=== PATIENT | female | born 1950 | race Caucasian/White ===

== ENCOUNTER 2017-03-19 18:36 | Emergency (ER) | payer MEDICARE, MEDICAID ==
[~2017-03-19] VITALS: Ht 167.6 cm; Wt 72.7 kg
[~2017-03-19 18:36] MED LIST: DIVA500T4 PO; DIVA500T9 PO; DOCU-20 PO; DOCU100C41 PO; ENOX80SY7 SUBCUT; FLUR15CA PO; FOLI1TAB16 PO; FURO-150 PO; IPRA3AMP9 NEB; LEVO50TA PO; LEVO88TA2 PO; LORA-512 PO; LORA10TA7 PO; LOVA20TA2 PO; LOVA40TA76 PO; LURA80TA3 PO; MAGN400T6 PO; MIRT15TA10 PO; MIRT30TA8 PO; MIRT45TA8 PO; MONT10TA21 PO; NICO-687 TD; NYSPWD TP; POLY17PO10 PO; POTA20TA10 PO; SPIR50TA PO; THI100T PO; [UNRECOGNIZED DRUG - CODE] PO
[2017-03-19 19:45] LABS: INR 1.3 INR; PARTIAL THROMBOPLASTIN TIME 30 SECONDS (22-32); PROTHROMBIN TIME 13.7 SECONDS (9.0-12.0)
[2017-03-19 19:51] LABS: AMMONIA < 10 UMOL/L (11-32)
[2017-03-19 19:54] LABS: ALANINE AMINOTRANSFERASE 35 U/L (12-78); ALBUMIN 2.3 G/DL (3.4-5.0); ALBUMIN/GLOBULIN RATIO 0.8 (1.1-1.5); ALKALINE PHOSPHATASE 251 IU/L (46-116); ANION GAP 9 (8-16); ASPARTATE AMINO TRANSFERASE 21 U/L (10-37); BILIRUBIN,TOTAL 1.9 MG/DL (0.1-1.0); BLOOD UREA NITROGEN 15 MG/DL (7-18); CHLORIDE 110 MMOL/L (99-107); GLUCOSE 89 MG/DL (70-104); POTASSIUM 3.1 MMOL/L (3.5-5.1); SODIUM 143 MMOL/L (135-145); TOTAL CARBON DIOXIDE 24.4 MMOL/L (24-32); TOTAL PROTEIN 5.3 G/DL (6.4-8.2); TROPONIN I < 0.04 NG/ML (0.0-0.05); eGFR > 90 ML/MIN
[2017-03-19 19:57] LABS: ETHANOL < 0.010 GM/DL (0.0-0.010)
[2017-03-19 20:02] LABS: LACTIC SEPSIS 1.2 MMOL/L (0.4-2.0)
[2017-03-19 20:59] LABS: BASOPHILS % (AUTO) 0.2 % (0-1); EOSINOPHILS # (AUTO) 0.1 X10'3 (0-0.9); EOSINOPHILS % (AUTO) 1.7 % (0-6); HEMATOCRIT 33.7 % (35.0-45.0); HEMOGLOBIN 11.3 g/dl (12.0-16.0); LYMPHOCYTES # (AUTO) 2.1 X10'3 (1.1-4.8); LYMPHOCYTES % (AUTO) 24.6 % (21-51); MEAN CORPUSCULAR HGB CONC 33.4 % (33.0-36.5); MEAN CORPUSCULAR VOLUME 107.7 FL (78-98); MEAN PLATELET VOLUME 8.1 FL (7.4-10.4); MONOCYTES # (AUTO) 1.2 X10'3 (0-0.9); MONOCYTES % (AUTO) 13.8 % (2-12); NEUTROPHILS % (AUTO) 59.7 % (42-75); PLATELET COUNT 137 X10'3 (140-440); RED BLOOD COUNT 3.13 X10'6 (4.20-5.60); RED CELL DISTRIBUTION WIDTH 18.5 % (11.5-14.5); WHITE BLOOD COUNT 8.4 X10'3 (4.5-11.0)
[2017-03-19] MEDS ORDERED: folic acid 1mg tablet PO ONE (21:40)
[2017-03-19] MEDS ORDERED: LORazepam 1 MG tablet PO ONE (21:40)
[2017-03-19] MEDS ORDERED: thiamine 100mg tablet PO ONE (21:40)
[2017-03-19 22:49] LABS: VALPROATE 7 UG/ML (50-100)
[2017-03-19 23:49] VITALS: BP 105/66
== END 2017-03-20 00:05 | disposition home or self-care (01) ==
LOC: ER 18:36
DX: S51.811A Laceration without foreign body of right forearm, initial encounter (principal); I25.10 Atherosclerotic heart disease of native coronary artery without angina pectoris; I25.2 Old myocardial infarction; J44.9 Chronic obstructive pulmonary disease, unspecified; E03.9 Hypothyroidism, unspecified; Z98.890 Other specified postprocedural states; Z79.899 Other long term (current) drug therapy; X58.XXXA Exposure to other specified factors, initial encounter; Y93.89 Activity, other specified; Y92.89 Other specified places as the place of occurrence of the external cause; Y99.8 Other external cause status
CPT/HCPCS: 12002; 36415; 70450; 71045; 80053; 80164; 80320; 82140; 83605; 83880; 84484; 85025; 85610; 85730; 87040; 93005; 99285; A4315

== ENCOUNTER 2017-04-21 23:50 | Emergency (ER) | payer MEDICARE, MEDICAID ==
[~2017-04-21] VITALS: Ht 152.4 cm; Wt 117.0 kg
[2017-04-22 02:13] LABS: BASOPHILS % (AUTO) 0.6 % (0-1); EOSINOPHILS % (AUTO) 0.7 % (0-6); HEMATOCRIT 32.1 % (35.0-45.0); HEMOGLOBIN 10.9 g/dl (12.0-16.0); LYMPHOCYTES # (AUTO) 1.5 X10'3 (1.1-4.8); LYMPHOCYTES % (AUTO) 48.3 % (21-51); MEAN CORPUSCULAR HEMOGLOBIN 36.2 PG (27.0-31.0); MEAN CORPUSCULAR VOLUME 106.5 FL (78-98); MEAN PLATELET VOLUME 7.6 FL (7.4-10.4); MONOCYTES # (AUTO) 0.3 X10'3 (0-0.9); MONOCYTES % (AUTO) 9.2 % (2-12); NEUTROPHILS # (AUTO) 1.3 X10'3 (1.8-7.7); NEUTROPHILS % (AUTO) 41.2 % (42-75); PLATELET COUNT 67 X10'3 (140-440); RED BLOOD COUNT 3.01 X10'6 (4.20-5.60); RED CELL DISTRIBUTION WIDTH 16.4 % (11.5-14.5); WHITE BLOOD COUNT 3.1 X10'3 (4.5-11.0)
[2017-04-22 02:14] LABS: INR 1.4 INR; PARTIAL THROMBOPLASTIN TIME 29 SECONDS (22-32); PROTHROMBIN TIME 14.1 SECONDS (9.0-12.0)
[2017-04-22 02:16] LABS: ALANINE AMINOTRANSFERASE 17 U/L (12-78); ALBUMIN 2.2 G/DL (3.4-5.0); ALBUMIN/GLOBULIN RATIO 0.8 (1.1-1.5); ALKALINE PHOSPHATASE 211 IU/L (46-116); ANION GAP 13 (8-16); ASPARTATE AMINO TRANSFERASE 32 U/L (10-37); BILIRUBIN,TOTAL 0.8 MG/DL (0.1-1.0); BLOOD UREA NITROGEN 7 MG/DL (7-18); CALCIUM 7.6 MG/DL (8.5-10.1); CHLORIDE 102 MMOL/L (99-107); CREATININE 0.88 MG/DL (0.40-0.90); GLUCOSE 90 MG/DL (70-104); MAGNESIUM 1.6 MG/DL (1.5-2.4); SODIUM 140 MMOL/L (135-145); TOTAL CARBON DIOXIDE 24.8 MMOL/L (24-32); TOTAL PROTEIN 5.1 G/DL (6.4-8.2); eGFR 64 ML/MIN
[2017-04-22 02:38] LABS: POTASSIUM 1.9 MMOL/L (3.5-5.1)
[2017-04-22] MEDS ORDERED: potassium Cl 20 mEq SR tablet PO ONE (02:40)
[2017-04-22] MEDS ORDERED: magnesium 2GM in 50ml NS 50 ML IV ONE (02:40)
[2017-04-22 03:47] VITALS: BP 89/61
== END 2017-04-22 03:49 | disposition short-term general hospital (02) ==
LOC: ER 23:50
DX: S06.0X0A Concussion without loss of consciousness, initial encounter (principal); S06.5X0A Traumatic subdural hemorrhage without loss of consciousness, initial encounter; S00.03XA Contusion of scalp, initial encounter; E87.6 Hypokalemia; D61.818 Other pancytopenia; I25.10 Atherosclerotic heart disease of native coronary artery without angina pectoris; I25.2 Old myocardial infarction; J44.9 Chronic obstructive pulmonary disease, unspecified; E03.9 Hypothyroidism, unspecified; Z90.49 Acquired absence of other specified parts of digestive tract; W19.XXXA Unspecified fall, initial encounter; Y93.89 Activity, other specified; Y92.89 Other specified places as the place of occurrence of the external cause; Y99.8 Other external cause status
CPT/HCPCS: 36415; 70450; 71045; 80053; 83735; 85025; 85610; 85730; 93005; 96365; 99291; J3475

== ENCOUNTER 2017-06-02 11:32 | Emergency (ER) | payer MEDICARE, MEDICAID ==
[~2017-06-02] VITALS: Ht 152.4 cm; Wt 45.5 kg
[2017-06-02 12:05] VITALS: BP 114/84
[2017-06-02] MEDS ORDERED: HYDROcodone/acetaminophen 5mg/325mg tablet PO ONE (12:25)
[2017-06-02] MEDS ORDERED: ibuprofen 200mg tablet PO ONE (12:25)
[2017-06-02] MEDS ORDERED: HYDR-3965 PO (13:01)
== END 2017-06-02 13:37 | disposition home or self-care (01) ==
LOC: ER 11:33
DX: S42.031A Displaced fracture of lateral end of right clavicle, initial encounter for closed fracture (principal); S43.109A Unspecified dislocation of unspecified acromioclavicular joint, initial encounter; S20.211A Contusion of right front wall of thorax, initial encounter; S20.221A Contusion of right back wall of thorax, initial encounter; S40.021A Contusion of right upper arm, initial encounter; Z88.8 Allergy status to other drugs, medicaments and biological substances; Z79.899 Other long term (current) drug therapy; W22.8XXA Striking against or struck by other objects, initial encounter; Y93.89 Activity, other specified; Y92.89 Other specified places as the place of occurrence of the external cause; Y99.8 Other external cause status
CPT/HCPCS: 29105; 73030; 99284; A4565

== ENCOUNTER 2017-09-26 16:38 | Inpatient (IN) | payer MEDICARE, MEDICAID ==
[~2017-09-26] VITALS: Ht 154.9 cm; Wt 50.5 kg
[2017-09-26] MEDS ORDERED: fentaNYL/PF 50MCG/1 ML 2ML syringe IV ONE ×2 (16:50→18:30)
[2017-09-26 17:37] LABS: PROTHROMBIN TIME 10.6 SECONDS (9.0-12.0)
[2017-09-26 17:39] LABS: BASOPHILS % (AUTO) 0.2 % (0-1); EOSINOPHILS % (AUTO) 0.2 % (0-6); HEMATOCRIT 39.2 % (35.0-45.0); HEMOGLOBIN 13.4 g/dl (12.0-16.0); LYMPHOCYTES # (AUTO) 0.8 X10'3 (1.1-4.8); LYMPHOCYTES % (AUTO) 11.7 % (21-51); MEAN CORPUSCULAR HEMOGLOBIN 33.6 PG (27.0-31.0); MEAN CORPUSCULAR HGB CONC 34.3 % (33.0-36.5); MEAN PLATELET VOLUME 8.1 FL (7.4-10.4); MONOCYTES # (AUTO) 0.4 X10'3 (0-0.9); MONOCYTES % (AUTO) 5.1 % (2-12); NEUTROPHILS # (AUTO) 5.8 X10'3 (1.8-7.7); NEUTROPHILS % (AUTO) 82.8 % (42-75); PLATELET COUNT 110 X10'3 (140-440); RED CELL DISTRIBUTION WIDTH 19.1 % (11.5-14.5)
[2017-09-26 17:47] LABS: ALANINE AMINOTRANSFERASE 22 U/L (12-78); ALBUMIN 3.5 G/DL (3.4-5.0); ALKALINE PHOSPHATASE 123 IU/L (46-116); ANION GAP 13 (8-16); ASPARTATE AMINO TRANSFERASE 22 U/L (10-37); BLOOD UREA NITROGEN 4 MG/DL (7-18); BUN/CREATININE RATIO 5.9 (6.6-38.0); CALCIUM 8.6 MG/DL (8.5-10.1); CHLORIDE 96 MMOL/L (99-107); CREATININE 0.68 MG/DL (0.40-0.90); GLUCOSE 120 MG/DL (70-104); POTASSIUM 3.3 MMOL/L (3.5-5.1); SODIUM 128 MMOL/L (135-145); TOTAL CARBON DIOXIDE 18.9 MMOL/L (24-32); TOTAL PROTEIN 6.9 G/DL (6.4-8.2); eGFR 87 ML/MIN
[2017-09-26 17:54] LABS: ANISOCYTOSIS 2+; ELLIPTOCYTES FEW; PLATELET ESTIMATE DECREASED; POLYCHROMASIA FEW; TARGET CELLS FEW
[2017-09-26] MEDS ORDERED: DIVA500T2 PO (18:27)
[2017-09-26] MEDS ORDERED: normal saline 1000ml 1,000 ML IV ONE (18:30)
[2017-09-26] MEDS ORDERED: TOPI100T18 PO (18:35)
[2017-09-26] MEDS ORDERED: ZOLP5TAB8 PO (18:35)
[2017-09-26] MEDS ORDERED: HYDR-3965 PO (18:35)
[2017-09-26] MEDS ORDERED: LIOT25TA6 PO (18:35)
[2017-09-26] MEDS ORDERED: GABA300C PO (18:35)
[2017-09-26 20:21] LABS: CLARITY,URINE CLEAR (Clear); COLOR,URINE YELLOW (Yellow); GLUCOSE, URINE NEGATIVE (Neg); KETONES,URINE NEGATIVE (Neg); LEUKOCYTE ESTERASE ,URINE SMALL (Neg); NITRITES, URINE NEGATIVE (Neg); OCCULT BLOOD,URINE TRACE-LYSED (Neg); PROTEIN,URINE TRACE mg/dl (Neg); UROBILINOGEN,URINE 0.2 E.U/dL (0.2-1.0)
[2017-09-26 20:30] LABS: UA COLLECTION TYPE FOLEY CATH
[2017-09-26 20:31] LABS: BACTERIA,URINE FEW /HPF (Neg); RBC,URINE 0-2 /HPF (0-2); SQUAMOUS EPITHELIAL CELL,UR FEW /LPF (FEW); WBC CLUMPS,URINE MODERATE /HPF (NEGATIVE)
[2017-09-26] MEDS ORDERED: potassium Cl 40MEQ/NS 500ml 500 ML IV PRN ×2 (22:20)
[2017-09-26] MEDS ORDERED: magnesium 1gm/100ml D5W IVPB 100 ML IV PRN (22:20)
[2017-09-26] MEDS ORDERED: acetaminophen 325mg tablet PO PRN (22:20)
[2017-09-26] MEDS ORDERED: potassium Cl 20 mEq SR tablet PO PRN (22:20)
[2017-09-26] MEDS ORDERED: morphine 4 MG/ML inj SYRINge IV PRN (22:20)
[2017-09-26] MEDS ORDERED: magnesium Cl slow-release 64mg tablet PO PRN (22:20)
[2017-09-26] MEDS ORDERED: ondansetron/PF 4mg/2ml inj IV PRN (22:20)
[2017-09-26] MEDS ORDERED: magnesium 4gm in 100ml NS 100 ML IV PRN (22:20)
[2017-09-26 23:20] VITALS: BP 132/79
[2017-09-27] MEDS: normal saline 1000ml 1,000 ML IV SCH ×3 (00:53→20:05)
[2017-09-27] MEDS: morphine 4 MG/ML inj SYRINge IV PRN ×2 (01:00→21:01)
[2017-09-27] MEDS ORDERED: zolpidem 5mg tablet PO PRN (03:20)
[2017-09-27] MEDS: HYDROcodone/acetaminophen 5mg/325mg tablet PO PRN ×3 (05:28→20:08)
[2017-09-27 06:00] VITALS: BP 142/79
[2017-09-27 06:26] LABS: BASOPHILS % (AUTO) 0.6 % (0-1); EOSINOPHILS # (AUTO) 0.1 X10'3 (0-0.9); EOSINOPHILS % (AUTO) 1.5 % (0-6); HEMOGLOBIN 10.3 g/dl (12.0-16.0); LYMPHOCYTES # (AUTO) 1.6 X10'3 (1.1-4.8); LYMPHOCYTES % (AUTO) 39.7 % (21-51); MEAN CORPUSCULAR HEMOGLOBIN 34.1 PG (27.0-31.0); MEAN CORPUSCULAR HGB CONC 34.5 % (33.0-36.5); MONOCYTES # (AUTO) 0.3 X10'3 (0-0.9); MONOCYTES % (AUTO) 6.4 % (2-12); NEUTROPHILS # (AUTO) 1.9 X10'3 (1.8-7.7); NEUTROPHILS % (AUTO) 51.8 % (42-75); PLATELET COUNT 72 X10'3 (140-440); RED BLOOD COUNT 3.03 X10'6 (4.20-5.60); RED CELL DISTRIBUTION WIDTH 19.3 % (11.5-14.5); WHITE BLOOD COUNT 3.9 X10'3 (4.5-11.0)
[2017-09-27 06:49] LABS: ALBUMIN 2.4 G/DL (3.4-5.0); ANION GAP 9 (8-16); BLOOD UREA NITROGEN 7 MG/DL (7-18); BUN/CREATININE RATIO 14.9 (6.6-38.0); CALCIUM 7.7 MG/DL (8.5-10.1); CHLORIDE 102 MMOL/L (99-107); CREATININE 0.47 MG/DL (0.40-0.90); GLUCOSE 82 MG/DL (70-104); MAGNESIUM 1.5 MG/DL (1.5-2.4); POTASSIUM 3.2 MMOL/L (3.5-5.1); SODIUM 131 MMOL/L (135-145); eGFR > 90 ML/MIN
[2017-09-27] MEDS: ipratropium/albuterol 3ml nebule NEB SCH ×5 (07:02→23:31)
[2017-09-27] MEDS: levoTHYROXINE 112mcg tablet PO SCH (07:20)
[2017-09-27] MEDS: lurasidone 20mg tablet PO SCH (07:21)
[2017-09-27] MEDS: divalproex sodium 250mg tablet PO SCH ×3 (07:22→20:07)
[2017-09-27] MEDS: atorvastatin 10mg tablet PO SCH (07:23)
[2017-09-27] MEDS: gabapentin 300mg capsule PO SCH ×3 (07:24→20:07)
[2017-09-27] MEDS: montelukast 10mg tablet PO SCH (07:24)
[2017-09-27] MEDS: topiramate 100mg tablet PO SCH (07:25)
[2017-09-27] MEDS: docusate sod 100mg capsule PO SCH (07:27)
[2017-09-27] MEDS ORDERED: levoTHYROXINE 88mcg tablet PO SCH (08:00)
[2017-09-27] MEDS ORDERED: docusate sod 100mg capsule PO SCH (08:00)
[2017-09-27] MEDS: potassium Cl 20 mEq SR tablet PO PRN ×3 (08:45→17:55)
[2017-09-27] MEDS: K and/or MAG REPLACEMENT MC SCH (08:47)
[2017-09-27] MEDS: liothyronine sod 5mcg tablet PO SCH (08:57)
[2017-09-27 10:39] VITALS: BP 127/67
[2017-09-27 18:00] VITALS: BP 117/68
[2017-09-27] MEDS: mirtazapine 15mg tablet PO SCH (20:07)
[2017-09-27 22:00] VITALS: BP 134/74
[2017-09-28] MEDS: HYDROcodone/acetaminophen 5mg/325mg tablet PO PRN ×4 (00:02→22:11)
[2017-09-28] MEDS: morphine 4 MG/ML inj SYRINge IV PRN (02:03)
[2017-09-28] MEDS: ipratropium/albuterol 3ml nebule NEB SCH ×6 (03:45→23:31)
[2017-09-28] MEDS: normal saline 1000ml 1,000 ML IV SCH ×2 (05:17→15:08)
[2017-09-28 06:00] VITALS: BP 133/71
[2017-09-28 06:01] LABS: BASOPHILS % (AUTO) 0.5 % (0-1); EOSINOPHILS # (AUTO) 0.1 X10'3 (0-0.9); EOSINOPHILS % (AUTO) 1.8 % (0-6); HEMOGLOBIN 9.5 g/dl (12.0-16.0); LYMPHOCYTES # (AUTO) 1.5 X10'3 (1.1-4.8); LYMPHOCYTES % (AUTO) 34.3 % (21-51); MEAN CORPUSCULAR HEMOGLOBIN 33.7 PG (27.0-31.0); MEAN CORPUSCULAR HGB CONC 33.9 % (33.0-36.5); MEAN CORPUSCULAR VOLUME 99.2 FL (78-98); MEAN PLATELET VOLUME 7.8 FL (7.4-10.4); MONOCYTES # (AUTO) 0.3 X10'3 (0-0.9); MONOCYTES % (AUTO) 5.8 % (2-12); NEUTROPHILS # (AUTO) 2.5 X10'3 (1.8-7.7); NEUTROPHILS % (AUTO) 57.6 % (42-75); PLATELET COUNT 64 X10'3 (140-440); RED BLOOD COUNT 2.82 X10'6 (4.20-5.60); RED CELL DISTRIBUTION WIDTH 21.1 % (11.5-14.5); WHITE BLOOD COUNT 4.4 X10'3 (4.5-11.0)
[2017-09-28 06:11] LABS: ALBUMIN 2.3 G/DL (3.4-5.0); ANION GAP 6 (8-16); BLOOD UREA NITROGEN 8 MG/DL (7-18); BUN/CREATININE RATIO 19.5 (6.6-38.0); CALCIUM 7.7 MG/DL (8.5-10.1); CHLORIDE 103 MMOL/L (99-107); CREATININE 0.41 MG/DL (0.40-0.90); GLUCOSE 82 MG/DL (70-104); MAGNESIUM 1.5 MG/DL (1.5-2.4); POTASSIUM 4.4 MMOL/L (3.5-5.1); SODIUM 130 MMOL/L (135-145); TOTAL CARBON DIOXIDE 21.5 MMOL/L (24-32); eGFR > 90 ML/MIN
[2017-09-28] MEDS: K and/or MAG REPLACEMENT MC SCH (08:00)
[2017-09-28] MEDS: docusate sod 100mg capsule PO SCH (08:00)
[2017-09-28] MEDS: gabapentin 300mg capsule PO SCH ×3 (08:14→20:05)
[2017-09-28] MEDS: divalproex sodium 250mg tablet PO SCH ×3 (08:14→20:05)
[2017-09-28] MEDS: atorvastatin 10mg tablet PO SCH (08:15)
[2017-09-28] MEDS: liothyronine sod 5mcg tablet PO SCH (08:15)
[2017-09-28] MEDS: montelukast 10mg tablet PO SCH (08:15)
[2017-09-28] MEDS: topiramate 100mg tablet PO SCH (08:16)
[2017-09-28] MEDS: levoTHYROXINE 112mcg tablet PO SCH (08:16)
[2017-09-28] MEDS: lurasidone 20mg tablet PO SCH (08:16)
[2017-09-28 08:48] LABS: ANISOCYTOSIS 3+; PLATELET ESTIMATE DECREASED
[2017-09-28 10:00] VITALS: BP 122/82
[2017-09-28 18:00] VITALS: BP 130/76
[2017-09-28] MEDS: mirtazapine 15mg tablet PO SCH (20:05)
[2017-09-28 22:00] VITALS: BP 153/78
[2017-09-29] MEDS: normal saline 1000ml 1,000 ML IV SCH ×2 (00:16→09:38)
[2017-09-29] MEDS: ipratropium/albuterol 3ml nebule NEB SCH ×3 (03:04→13:17)
[2017-09-29 06:00] VITALS: BP 149/80
[2017-09-29 06:06] LABS: HEMATOCRIT 29.5 % (35.0-45.0); MEAN CORPUSCULAR HEMOGLOBIN 33.6 PG (27.0-31.0); MEAN CORPUSCULAR VOLUME 98.7 FL (78-98); MEAN PLATELET VOLUME 7.5 FL (7.4-10.4); PLATELET COUNT 64 X10'3 (140-440); RED BLOOD COUNT 2.99 X10'6 (4.20-5.60); RED CELL DISTRIBUTION WIDTH 20.3 % (11.5-14.5); WHITE BLOOD COUNT 5.9 X10'3 (4.5-11.0)
[2017-09-29 06:11] LABS: ALBUMIN 2.2 G/DL (3.4-5.0); ANION GAP 9 (8-16); BLOOD UREA NITROGEN 5 MG/DL (7-18); BUN/CREATININE RATIO 11.4 (6.6-38.0); CALCIUM 7.7 MG/DL (8.5-10.1); CHLORIDE 98 MMOL/L (99-107); CREATININE 0.44 MG/DL (0.40-0.90); GLUCOSE 84 MG/DL (70-104); MAGNESIUM 1.3 MG/DL (1.5-2.4); POTASSIUM 3.7 MMOL/L (3.5-5.1); SODIUM 128 MMOL/L (135-145); TOTAL CARBON DIOXIDE 21.3 MMOL/L (24-32); eGFR > 90 ML/MIN
[2017-09-29] MEDS: HYDROcodone/acetaminophen 5mg/325mg tablet PO PRN ×2 (06:28→12:27)
[2017-09-29 06:50] LABS: ANISOCYTOSIS 2+; PLATELET ESTIMATE DECREASED; TOTAL CELLS COUNTED 100
[2017-09-29] MEDS: docusate sod 100mg capsule PO SCH (08:00)
[2017-09-29] MEDS: K and/or MAG REPLACEMENT MC SCH (08:00)
[2017-09-29] MEDS: levoTHYROXINE 112mcg tablet PO SCH (08:23)
[2017-09-29] MEDS: liothyronine sod 5mcg tablet PO SCH (08:23)
[2017-09-29] MEDS: divalproex sodium 250mg tablet PO SCH ×2 (08:24→12:26)
[2017-09-29] MEDS: montelukast 10mg tablet PO SCH (08:24)
[2017-09-29] MEDS: lurasidone 20mg tablet PO SCH (08:24)
[2017-09-29] MEDS: atorvastatin 10mg tablet PO SCH (08:24)
[2017-09-29] MEDS: topiramate 100mg tablet PO SCH (08:24)
[2017-09-29] MEDS: gabapentin 300mg capsule PO SCH ×2 (08:24→12:26)
[2017-09-29 10:00] VITALS: BP 136/67
== END 2017-09-29 13:45 | DRG 542 ==
LOC: ER 16:39 → ED HOLD 22:16 → ORTHO 4S 23:45
PROVIDERS: ADMIT Internal Medicine; ATTEND Internal Medicine
DX: M80.052A Age-related osteoporosis with current pathological fracture, left femur, initial encounter for fracture (principal); E43 Unspecified severe protein-calorie malnutrition; E87.1 Hypo-osmolality and hyponatremia; S72.111A Displaced fracture of greater trochanter of right femur, initial encounter for closed fracture; S32.592A Other specified fracture of left pubis, initial encounter for closed fracture; I25.10 Atherosclerotic heart disease of native coronary artery without angina pectoris; E87.6 Hypokalemia; E03.9 Hypothyroidism, unspecified; E78.5 Hyperlipidemia, unspecified; D69.6 Thrombocytopenia, unspecified; E83.42 Hypomagnesemia; G89.29 Other chronic pain; M54.9 Dorsalgia, unspecified; F31.9 Bipolar disorder, unspecified; J44.9 Chronic obstructive pulmonary disease, unspecified; F17.210 Nicotine dependence, cigarettes, uncomplicated; R29.6 Repeated falls; W18.30XA Fall on same level, unspecified, initial encounter; I25.2 Old myocardial infarction; Z90.49 Acquired absence of other specified parts of digestive tract; Z79.899 Other long term (current) drug therapy; Z88.8 Allergy status to other drugs, medicaments and biological substances; Z82.49 Family history of ischemic heart disease and other diseases of the circulatory system; Z82.5 Family history of asthma and other chronic lower respiratory diseases; Z68.21 Body mass index [BMI] 21.0-21.9, adult; Y93.89 Activity, other specified; Y92.89 Other specified places as the place of occurrence of the external cause; Y99.8 Other external cause status
CPT/HCPCS: 36415; 71045; 72192; 73502; 80048; 80053; 81001; 83735; 84443; 85007; 85025; 85027; 85610; 86885; 86900; 86901; 87070; 87088; 93005; 94640; 94760; 96361; 96374; 96375; 97162; 97530; 99285; A4414; A6213; A6222; A6255; A6446; A6449; C1758; J2270; J3010; J7030

== ENCOUNTER 2017-10-29 13:06 | Emergency (ER) | payer MEDICARE, MEDICAID ==
[~2017-10-29] VITALS: Ht 154.9 cm; Wt 57.0 kg
[~2017-10-29 13:06] MED LIST changes: +DIVA500T2 PO; -DIVA500T4 PO; -DIVA500T9 PO; -ENOX80SY7 SUBCUT; -FOLI1TAB16 PO; +GABA300C PO; +HYDR-3965 PO; +LIOT25TA6 PO; -LORA-512 PO; -LORA10TA7 PO; -LOVA20TA2 PO; -MAGN400T6 PO; -MIRT30TA8 PO; -MIRT45TA8 PO; -NICO-687 TD; -NYSPWD TP; -POLY17PO10 PO; -POTA20TA10 PO; -SPIR50TA PO; -THI100T PO; +TOPI100T18 PO; +ZOLP5TAB8 PO; -[UNRECOGNIZED DRUG - CODE] PO
[2017-10-29] MEDS ORDERED: normal saline 1000ML IV soln IVB ONE (13:25)
[2017-10-29 14:07] LABS: CLARITY,URINE CLEAR (Clear); COLOR,URINE YELLOW (Yellow); GLUCOSE, URINE NEGATIVE (Neg); KETONES,URINE NEGATIVE (Neg); LEUKOCYTE ESTERASE ,URINE MODERATE (Neg); NITRITES, URINE NEGATIVE (Neg); OCCULT BLOOD,URINE NEGATIVE (Neg); PH,URINE 6.5 (4.8-8.0); PROTEIN,URINE NEGATIVE (Neg); UROBILINOGEN,URINE 0.2 E.U/dL (0.2-1.0)
[2017-10-29 14:09] LABS: BASOPHILS % (AUTO) 0.3 % (0-1); EOSINOPHILS % (AUTO) 0.3 % (0-6); HEMATOCRIT 36.5 % (35.0-45.0); HEMOGLOBIN 12.6 g/dl (12.0-16.0); LYMPHOCYTES # (AUTO) 0.8 X10'3 (1.1-4.8); LYMPHOCYTES % (AUTO) 9.8 % (21-51); MEAN CORPUSCULAR HEMOGLOBIN 35.1 PG (27.0-31.0); MEAN CORPUSCULAR HGB CONC 34.7 % (33.0-36.5); MEAN CORPUSCULAR VOLUME 101.3 FL (78-98); MEAN PLATELET VOLUME 7.8 FL (7.4-10.4); MONOCYTES # (AUTO) 0.4 X10'3 (0-0.9); MONOCYTES % (AUTO) 4.7 % (2-12); NEUTROPHILS # (AUTO) 6.9 X10'3 (1.8-7.7); NEUTROPHILS % (AUTO) 84.9 % (42-75); PLATELET COUNT 138 X10'3 (140-440); RED CELL DISTRIBUTION WIDTH 15.6 % (11.5-14.5); WHITE BLOOD COUNT 8.1 X10'3 (4.5-11.0)
[2017-10-29 14:14] LABS: UA COLLECTION TYPE STRAIGHT CATH
[2017-10-29 14:19] LABS: BACTERIA,URINE 2+ /HPF (Neg); MUCUS STRANDS NONE SEEN /LPF (Neg); RBC,URINE NONE SEEN /HPF (0-2); SQUAMOUS EPITHELIAL CELL,UR NONE SEEN /LPF (FEW)
[2017-10-29 14:24] LABS: ALANINE AMINOTRANSFERASE 11 U/L (12-78); ALBUMIN 3.5 G/DL (3.4-5.0); ALBUMIN/GLOBULIN RATIO 1.1 (1.1-1.5); ALKALINE PHOSPHATASE 125 IU/L (46-116); ANION GAP 12 (8-16); ASPARTATE AMINO TRANSFERASE 6 U/L (10-37); BILIRUBIN,TOTAL 0.7 MG/DL (0.1-1.0); BLOOD UREA NITROGEN 5 MG/DL (7-18); BUN/CREATININE RATIO 9.8 (6.6-38.0); CALCIUM 8.5 MG/DL (8.5-10.1); CHLORIDE 91 MMOL/L (99-107); CREATININE 0.51 MG/DL (0.40-0.90); GLUCOSE 89 MG/DL (70-104); POTASSIUM 3.2 MMOL/L (3.5-5.1); SODIUM 123 MMOL/L (135-145); TOTAL CARBON DIOXIDE 20.5 MMOL/L (24-32); TOTAL PROTEIN 6.6 G/DL (6.4-8.2); eGFR > 90 ML/MIN
[2017-10-29] MEDS ORDERED: CefTRIAXone 2gm/D5W 50ml 50 ML IV ONE (14:25)
[2017-10-29] MEDS ORDERED: CEPH500C5 PO (14:25)
[2017-10-29 16:11] VITALS: BP 140/77
== END 2017-10-29 17:14 | disposition home or self-care (01) ==
LOC: ER 13:07
DX: S40.011A Contusion of right shoulder, initial encounter (principal); N39.0 Urinary tract infection, site not specified; I25.10 Atherosclerotic heart disease of native coronary artery without angina pectoris; I25.2 Old myocardial infarction; J44.9 Chronic obstructive pulmonary disease, unspecified; E03.9 Hypothyroidism, unspecified; G89.29 Other chronic pain; F17.210 Nicotine dependence, cigarettes, uncomplicated; Z90.49 Acquired absence of other specified parts of digestive tract; Z98.890 Other specified postprocedural states; Z88.8 Allergy status to other drugs, medicaments and biological substances; Z88.6 Allergy status to analgesic agent; Z79.899 Other long term (current) drug therapy; W19.XXXA Unspecified fall, initial encounter; Y93.89 Activity, other specified; Y92.89 Other specified places as the place of occurrence of the external cause; Y99.9 Unspecified external cause status
CPT/HCPCS: 36415; 80053; 81001; 85025; 87088; 96365; 99284; J0696; J7030

== ENCOUNTER 2017-12-04 13:54 | Emergency (ER) | payer MEDICARE, MEDICAID ==
[~2017-12-04] VITALS: Ht 154.9 cm; Wt 56.0 kg
[~2017-12-04 13:54] MED LIST changes: +CEPH500C5 PO
[2017-12-04] MEDS ORDERED: ipratropium/albuterol 3ml nebule NEB ONE (14:10)
[2017-12-04 14:29] LABS: BASOPHILS % (AUTO) 0.2 % (0-1); EOSINOPHILS % (AUTO) 0.1 % (0-6); HEMOGLOBIN 12.3 g/dl (12.0-16.0); LYMPHOCYTES # (AUTO) 0.7 X10'3 (1.1-4.8); LYMPHOCYTES % (AUTO) 6.9 % (21-51); MEAN CORPUSCULAR HEMOGLOBIN 32.5 PG (27.0-31.0); MEAN CORPUSCULAR HGB CONC 33.2 % (33.0-36.5); MEAN CORPUSCULAR VOLUME 98.1 FL (78-98); MEAN PLATELET VOLUME 7.8 FL (7.4-10.4); MONOCYTES # (AUTO) 0.3 X10'3 (0-0.9); MONOCYTES % (AUTO) 3.1 % (2-12); NEUTROPHILS # (AUTO) 9.6 X10'3 (1.8-7.7); NEUTROPHILS % (AUTO) 89.7 % (42-75); PLATELET COUNT 139 X10'3 (140-440); RED BLOOD COUNT 3.77 X10'6 (4.20-5.60); RED CELL DISTRIBUTION WIDTH 15.5 % (11.5-14.5); WHITE BLOOD COUNT 10.7 X10'3 (4.5-11.0)
[2017-12-04 14:45] LABS: ALANINE AMINOTRANSFERASE 31 U/L (12-78); ALBUMIN/GLOBULIN RATIO 0.9 (1.1-1.5); ALKALINE PHOSPHATASE 123 IU/L (46-116); ANION GAP 7 (8-16); ASPARTATE AMINO TRANSFERASE 52 U/L (10-37); BILIRUBIN,TOTAL 0.7 MG/DL (0.1-1.0); BLOOD UREA NITROGEN 6 MG/DL (7-18); BUN/CREATININE RATIO 12.5 (6.6-38.0); CALCIUM 7.7 MG/DL (8.5-10.1); CHLORIDE 101 MMOL/L (99-107); CREATININE 0.48 MG/DL (0.40-0.90); GLUCOSE 96 MG/DL (70-104); SODIUM 133 MMOL/L (135-145); TOTAL CARBON DIOXIDE 24.6 MMOL/L (24-32); TOTAL PROTEIN 6.3 G/DL (6.4-8.2); eGFR > 90 ML/MIN
[2017-12-04 14:48] LABS: PLATELET ESTIMATE DECREASED; TOTAL CELLS COUNTED 100
[2017-12-04 14:49] LABS: TOXIC VACUOLATION FEW
[2017-12-04] MEDS ORDERED: potassium Cl 20 mEq SR tablet PO ONE (14:50)
[2017-12-04 15:01] LABS: PARTIAL THROMBOPLASTIN TIME 30 SECONDS (22-32); PROTHROMBIN TIME 10.8 SECONDS (9.0-12.0)
[2017-12-04 17:30] VITALS: BP 148/82
== END 2017-12-04 17:40 | disposition home or self-care (01) ==
LOC: ER 13:55
DX: S40.012A Contusion of left shoulder, initial encounter (principal); S40.011A Contusion of right shoulder, initial encounter; S40.021A Contusion of right upper arm, initial encounter; J44.9 Chronic obstructive pulmonary disease, unspecified; I25.10 Atherosclerotic heart disease of native coronary artery without angina pectoris; I25.2 Old myocardial infarction; E03.9 Hypothyroidism, unspecified; G89.29 Other chronic pain; R64 Cachexia; Z86.69 Personal history of other diseases of the nervous system and sense organs; Z90.49 Acquired absence of other specified parts of digestive tract; Z98.890 Other specified postprocedural states; Z88.8 Allergy status to other drugs, medicaments and biological substances; Z91.011 Allergy to milk products; Z91.018 Allergy to other foods; Z79.2 Long term (current) use of antibiotics; Z79.899 Other long term (current) drug therapy; W18.39XA Other fall on same level, initial encounter; Y93.89 Activity, other specified; Y92.002 Bathroom of unspecified non-institutional (private) residence as the place of occurrence of the external cause; Y99.8 Other external cause status
CPT/HCPCS: 36415; 71045; 80053; 83605; 84484; 85025; 85610; 85730; 87040; 93005; 94640; 94760; 99285

== ENCOUNTER 2017-12-06 06:12 | Inpatient (IN) | payer MEDICARE, MEDICAID ==
[~2017-12-06] VITALS: Ht 152.4 cm; Wt 60.0 kg
[2017-12-06] MEDS ORDERED: ipratropium/albuterol 3ml nebule NEB ONE (06:35)
[2017-12-06 07:49] LABS: BASOPHILS % (AUTO) 0.1 % (0-1); EOSINOPHILS # (AUTO) 0.1 X10'3 (0-0.9); EOSINOPHILS % (AUTO) 1.2 % (0-6); HEMOGLOBIN 11.8 g/dl (12.0-16.0); LYMPHOCYTES # (AUTO) 0.7 X10'3 (1.1-4.8); LYMPHOCYTES % (AUTO) 6.8 % (21-51); MEAN CORPUSCULAR HEMOGLOBIN 32.6 PG (27.0-31.0); MEAN CORPUSCULAR HGB CONC 32.8 % (33.0-36.5); MEAN CORPUSCULAR VOLUME 99.3 FL (78-98); MEAN PLATELET VOLUME 7.8 FL (7.4-10.4); MONOCYTES # (AUTO) 0.4 X10'3 (0-0.9); MONOCYTES % (AUTO) 4.6 % (2-12); NEUTROPHILS # (AUTO) 8.4 X10'3 (1.8-7.7); NEUTROPHILS % (AUTO) 87.3 % (42-75); PLATELET COUNT 126 X10'3 (140-440); RED BLOOD COUNT 3.63 X10'6 (4.20-5.60); RED CELL DISTRIBUTION WIDTH 15.6 % (11.5-14.5); WHITE BLOOD COUNT 9.7 X10'3 (4.5-11.0)
[2017-12-06 07:59] LABS: ALANINE AMINOTRANSFERASE 28 U/L (12-78); ALBUMIN 2.9 G/DL (3.4-5.0); ALBUMIN/GLOBULIN RATIO 0.8 (1.1-1.5); ALKALINE PHOSPHATASE 149 IU/L (46-116); ANION GAP 9 (8-16); ASPARTATE AMINO TRANSFERASE 27 U/L (10-37); BILIRUBIN,TOTAL 0.6 MG/DL (0.1-1.0); BLOOD UREA NITROGEN 8 MG/DL (7-18); CALCIUM 8.1 MG/DL (8.5-10.1); CHLORIDE 101 MMOL/L (99-107); GLUCOSE 93 MG/DL (70-104); POTASSIUM 3.3 MMOL/L (3.5-5.1); SODIUM 136 MMOL/L (135-145); TOTAL CARBON DIOXIDE 25.7 MMOL/L (24-32); TOTAL PROTEIN 6.4 G/DL (6.4-8.2); eGFR > 90 ML/MIN
[2017-12-06] MEDS ORDERED: potassium Cl 20 mEq SR tablet PO STA (08:33)
[2017-12-06] MEDS ORDERED: acetaminophen 325mg tablet PO PRN (09:10)
[2017-12-06] MEDS ORDERED: mag hydrox/Alum hydrox/simeth 30ml oral suspension PO PRN (09:10)
[2017-12-06] MEDS ORDERED: magnesium 4gm in 100ml NS 100 ML IV PRN (09:10)
[2017-12-06] MEDS ORDERED: potassium Cl 20 mEq SR tablet PO PRN ×2 (09:10)
[2017-12-06] MEDS ORDERED: magnesium 1gm/100ml D5W IVPB 100 ML IV PRN (09:10)
[2017-12-06] MEDS ORDERED: ipratropium/albuterol 3ml nebule NEB PRN (09:10)
[2017-12-06] MEDS ORDERED: potassium Cl 40MEQ/NS 500ml 500 ML IV PRN ×2 (09:10)
[2017-12-06] MEDS ORDERED: ondansetron/PF 4mg/2ml inj IV PRN (09:10)
[2017-12-06] MEDS ORDERED: magnesium hydroxide 30ml (MOM) UD suspension PO PRN (09:10)
[2017-12-06 09:16] LABS: CLARITY,URINE CLEAR (Clear); COLOR,URINE YELLOW (Yellow); GLUCOSE, URINE NEGATIVE (Neg); KETONES,URINE NEGATIVE (Neg); LEUKOCYTE ESTERASE ,URINE NEGATIVE (Neg); NITRITES, URINE NEGATIVE (Neg); OCCULT BLOOD,URINE NEGATIVE (Neg); PROTEIN,URINE NEGATIVE (Neg)
[2017-12-06 09:16] LABS: PROTHROMBIN TIME 10.7 SECONDS (9.0-12.0)
[2017-12-06 09:20] LABS: UA COLLECTION TYPE CLN CATCH MIDSTREAM
[2017-12-06 10:00] LABS: URINE AMPHETAMINE SCREEN NEGATIVE (Neg); URINE BARBITUATE SCREEN NEGATIVE (Neg); URINE BENZODIAZEPINES SCREEN NEGATIVE (Neg); URINE CANNABINOID SCREEN NEGATIVE (Neg); URINE COCAINE SCREEN NEGATIVE (Neg); URINE METHADONE SCREEN NEGATIVE (Neg); URINE OPIATE SCREEN POSITIVE (Neg); URINE PHENCYCLIDINE SCREEN NEGATIVE (Neg)
[2017-12-06 10:33] VITALS: BP 153/85
[2017-12-06] MEDS: morphine 2 MG/ML inj. syringe IV PRN (10:36)
[2017-12-06] MEDS: potassium Cl 20mEq in NS 1,000 ML IV SCH (10:36)
[2017-12-06] MEDS ORDERED: HYDROcodone/acetaminophen 10/325mg tab PO PRN (13:50)
[2017-12-06] MEDS: HYDROcodone/acetaminophen 10/325mg tab PO PRN ×3 (14:15→23:24)
[2017-12-06] MEDS ORDERED: ZOLP10TA5 PO (16:44)
[2017-12-06] MEDS ORDERED: DIVA500T9 PO (16:44)
[2017-12-06] MEDS ORDERED: BUDE10.2 IH (16:44)
[2017-12-06] MEDS ORDERED: LORA10TA7 PO (16:47)
[2017-12-06] MEDS ORDERED: MONT10TA24 PO (16:47)
[2017-12-06] MEDS ORDERED: MIRT45TA83 PO (16:47)
[2017-12-06] MEDS ORDERED: LOVA40TA2 (16:47)
[2017-12-06] MEDS ORDERED: LURA80TA3 PO (16:47)
[2017-12-06] MEDS ORDERED: HYDR-3973 PO (16:47)
[2017-12-06] MEDS ORDERED: DOCU-267 PO (16:47)
[2017-12-06] MEDS ORDERED: TOPI200T16 PO (16:47)
[2017-12-06] MEDS ORDERED: LIOT5TAB7 PO (16:47)
[2017-12-06] MEDS ORDERED: LEVO112T5 PO (16:47)
[2017-12-06] MEDS ORDERED: benzocaine/menthol oral lozeng 1 EACH BOX MM PRN (16:50)
[2017-12-06 18:00] VITALS: BP 141/82
[2017-12-06] MEDS ORDERED: GABA-532 PO (20:22)
[2017-12-07] VITALS (10 sets, daily range): BP systolic 122–168; BP diastolic 78–99
[2017-12-07] MEDS: HYDROcodone/acetaminophen 10/325mg tab PO PRN (04:04)
[2017-12-07] MEDS: potassium Cl 20mEq in NS 1,000 ML IV SCH ×3 (04:07→15:08)
[2017-12-07 05:56] LABS: BASOPHILS % (AUTO) 0.2 % (0-1); EOSINOPHILS # (AUTO) 0.2 X10'3 (0-0.9); EOSINOPHILS % (AUTO) 2.5 % (0-6); HEMATOCRIT 32.1 % (35.0-45.0); HEMOGLOBIN 10.6 g/dl (12.0-16.0); LYMPHOCYTES # (AUTO) 1.1 X10'3 (1.1-4.8); MEAN CORPUSCULAR HEMOGLOBIN 32.6 PG (27.0-31.0); MEAN CORPUSCULAR HGB CONC 33.2 % (33.0-36.5); MEAN CORPUSCULAR VOLUME 98.3 FL (78-98); MEAN PLATELET VOLUME 7.6 FL (7.4-10.4); MONOCYTES # (AUTO) 0.5 X10'3 (0-0.9); MONOCYTES % (AUTO) 5.6 % (2-12); NEUTROPHILS # (AUTO) 6.8 X10'3 (1.8-7.7); NEUTROPHILS % (AUTO) 78.7 % (42-75); PLATELET COUNT 121 X10'3 (140-440); RED BLOOD COUNT 3.26 X10'6 (4.20-5.60); RED CELL DISTRIBUTION WIDTH 15.6 % (11.5-14.5); WHITE BLOOD COUNT 8.6 X10'3 (4.5-11.0)
[2017-12-07 06:10] LABS: ALANINE AMINOTRANSFERASE 29 U/L (12-78); ALBUMIN 2.3 G/DL (3.4-5.0); ALBUMIN/GLOBULIN RATIO 0.8 (1.1-1.5); ALKALINE PHOSPHATASE 220 IU/L (46-116); ANION GAP 8 (8-16); ASPARTATE AMINO TRANSFERASE 39 U/L (10-37); BILIRUBIN,TOTAL 0.5 MG/DL (0.1-1.0); BLOOD UREA NITROGEN 5 MG/DL (7-18); BUN/CREATININE RATIO 11.4 (6.6-38.0); CALCIUM 7.8 MG/DL (8.5-10.1); CHLORIDE 102 MMOL/L (99-107); CREATININE 0.44 MG/DL (0.40-0.90); GLUCOSE 82 MG/DL (70-104); MAGNESIUM 1.5 MG/DL (1.5-2.4); POTASSIUM 4.4 MMOL/L (3.5-5.1); SODIUM 133 MMOL/L (135-145); TOTAL CARBON DIOXIDE 23.1 MMOL/L (24-32); TOTAL PROTEIN 5.3 G/DL (6.4-8.2); eGFR > 90 ML/MIN
[2017-12-07] MEDS: K and/or MAG REPLACEMENT MC SCH (06:53)
[2017-12-07] MEDS: enoxaparin 40mg/0.4ml syringe SQ SCH (08:00)
[2017-12-07] MEDS: morphine 2 MG/ML inj. syringe IV PRN (08:41)
[2017-12-07] MEDS ORDERED: morphine 2 MG/ML inj. syringe IV PRN (09:55)
[2017-12-07] MEDS ORDERED: LOVA20TA2 PO (12:20)
[2017-12-07] MEDS: morphine 4 MG/ML inj SYRINge IV PRN ×2 (12:30→23:01)
[2017-12-07] MEDS ORDERED: vancomycin 1,000mg inj ONE (14:58)
[2017-12-07] MEDS ORDERED: tranexamic acid inj. 1,000 MG in normal saline 100ml IV soln 90 ML IV ONE (15:30)
[2017-12-07] MEDS ORDERED: fentaNYL /PF 50mcg/ml 5ml ampule ONE (15:57)
[2017-12-07] MEDS ORDERED: midazolam 2 mg/2 ml injection ONE (15:57)
[2017-12-07] MEDS ORDERED: fentaNYL/PF 50MCG/1 ML 2ML syringe ONE (15:58)
[2017-12-07] MEDS ORDERED: propofol inj 20 ML IV ONE (16:00)
[2017-12-07] MEDS ORDERED: ceFAZolin 1GM/D5W- ADD-VANTAGE 50 ML IV ONE (16:00)
[2017-12-07] MEDS ORDERED: ringers solution, lacted 1,000 ML IV SCH (16:43)
[2017-12-07] MEDS ORDERED: proCHLORperazine 10 MG/2 ml inj IV PRN (16:45)
[2017-12-07] MEDS ORDERED: morphine 4 MG/ML inj SYRINge IV PRN ×2 (16:45)
[2017-12-07] MEDS ORDERED: ondansetron/PF 4mg/2ml inj IV PRN (16:45)
[2017-12-07] MEDS ORDERED: meperidine/PF 25mg/ml syringe IV PRN ×3 (16:45)
[2017-12-07] MEDS: ipratropium/albuterol 3ml nebule NEB SCH ×2 (19:10→23:10)
[2017-12-07] MEDS: levoFLOXACIN-Levaquin 750MG/D5 150 ML IV SCH (19:15)
[2017-12-07] MEDS: metoprolol tartrate 12.5mg (1/2 tablet) PO SCH (19:15)
[2017-12-07] MEDS: ceFAZolin 1GM/D5W- ADD-VANTAGE 50 ML IV SCH (23:27)
[2017-12-08] MEDS: HYDROcodone/acetaminophen 10/325mg tab PO PRN (00:58)
[2017-12-08] MEDS: ipratropium/albuterol 3ml nebule NEB SCH ×6 (03:03→23:57)
[2017-12-08] MEDS: morphine 4 MG/ML inj SYRINge IV PRN (04:45)
[2017-12-08] MEDS: potassium Cl 20mEq in NS 1,000 ML IV SCH (04:56)
[2017-12-08] MEDS: metoprolol tartrate 12.5mg (1/2 tablet) PO SCH ×2 (05:20→20:20)
[2017-12-08 06:00] VITALS: BP 154/97
[2017-12-08 06:15] LABS: BASOPHILS % (AUTO) 0.2 % (0-1); EOSINOPHILS # (AUTO) 0.1 X10'3 (0-0.9); EOSINOPHILS % (AUTO) 1.1 % (0-6); HEMOGLOBIN 9.7 g/dl (12.0-16.0); LYMPHOCYTES # (AUTO) 0.7 X10'3 (1.1-4.8); LYMPHOCYTES % (AUTO) 9.9 % (21-51); MEAN CORPUSCULAR HEMOGLOBIN 32.6 PG (27.0-31.0); MEAN CORPUSCULAR HGB CONC 33.5 % (33.0-36.5); MEAN CORPUSCULAR VOLUME 97.4 FL (78-98); MEAN PLATELET VOLUME 7.7 FL (7.4-10.4); MONOCYTES # (AUTO) 0.5 X10'3 (0-0.9); MONOCYTES % (AUTO) 7.5 % (2-12); NEUTROPHILS # (AUTO) 5.8 X10'3 (1.8-7.7); NEUTROPHILS % (AUTO) 81.3 % (42-75); PLATELET COUNT 128 X10'3 (140-440); RED BLOOD COUNT 2.98 X10'6 (4.20-5.60); RED CELL DISTRIBUTION WIDTH 15.3 % (11.5-14.5); WHITE BLOOD COUNT 7.2 X10'3 (4.5-11.0)
[2017-12-08 06:31] LABS: ALANINE AMINOTRANSFERASE 32 U/L (12-78); ALBUMIN 2.1 G/DL (3.4-5.0); ALBUMIN/GLOBULIN RATIO 0.7 (1.1-1.5); ALKALINE PHOSPHATASE 298 IU/L (46-116); ANION GAP 12 (8-16); ASPARTATE AMINO TRANSFERASE 58 U/L (10-37); BILIRUBIN,TOTAL 0.7 MG/DL (0.1-1.0); BLOOD UREA NITROGEN 6 MG/DL (7-18); BUN/CREATININE RATIO 13.6 (6.6-38.0); CALCIUM 7.8 MG/DL (8.5-10.1); CHLORIDE 98 MMOL/L (99-107); CREATININE 0.44 MG/DL (0.40-0.90); GLUCOSE 85 MG/DL (70-104); MAGNESIUM 1.3 MG/DL (1.5-2.4); POTASSIUM 4.3 MMOL/L (3.5-5.1); SODIUM 132 MMOL/L (135-145); TOTAL CARBON DIOXIDE 21.7 MMOL/L (24-32); TOTAL PROTEIN 5.2 G/DL (6.4-8.2); eGFR > 90 ML/MIN
[2017-12-08] MEDS: K and/or MAG REPLACEMENT MC SCH (08:00)
[2017-12-08] MEDS: oxyCODONE/APAP 10/325mg tablet PO PRN ×3 (08:16→17:21)
[2017-12-08] MEDS: ceFAZolin 1GM/D5W- ADD-VANTAGE 50 ML IV SCH (08:16)
[2017-12-08] MEDS: enoxaparin 40mg/0.4ml syringe SQ SCH (08:17)
[2017-12-08 10:00] VITALS: BP 144/94
[2017-12-08] MEDS ORDERED: HYDROcodone/acetaminophen 10/325mg tab PO PRN (11:50)
[2017-12-08] MEDS ORDERED: albuterol 2.5 MG/3 ML nebule NEB SCH (12:10)
[2017-12-08] MEDS ORDERED: albuterol 2.5 MG/3 ML nebule NEB PRN (12:10)
[2017-12-08] MEDS: levoFLOXACIN-Levaquin 750MG/D5 150 ML IV SCH (12:30)
[2017-12-08 14:00] VITALS: BP 141/84
[2017-12-08] MEDS: magnesium Cl slow-release 64mg tablet PO PRN (17:24)
[2017-12-08 18:00] VITALS: BP 137/81
[2017-12-08] MEDS: budesonide 0.5mg/2ml UD nebule IH SCH (19:38)
[2017-12-08] MEDS ORDERED: mirtazapine 15mg tablet PO SCH (21:00)
[2017-12-08] MEDS ORDERED: divalproex sod 250mg ER (24-hour) tablet PO SCH (21:00)
[2017-12-08] MEDS ORDERED: gabapentin 300mg capsule PO SCH (21:00)
[2017-12-08] MEDS ORDERED: zolpidem 5mg tablet PO SCH (21:00)
[2017-12-08 22:00] VITALS: BP 153/83
[2017-12-09] MEDS: oxyCODONE/APAP 10/325mg tablet PO PRN ×4 (00:19→13:52)
[2017-12-09] MEDS: ipratropium/albuterol 3ml nebule NEB SCH ×3 (03:46→11:25)
[2017-12-09 06:00] VITALS: BP 163/82
[2017-12-09 06:17] LABS: ALANINE AMINOTRANSFERASE 34 U/L (12-78); ALBUMIN/GLOBULIN RATIO 0.6 (1.1-1.5); ALKALINE PHOSPHATASE 306 IU/L (46-116); ANION GAP 9 (8-16); ASPARTATE AMINO TRANSFERASE 46 U/L (10-37); BILIRUBIN,TOTAL 0.4 MG/DL (0.1-1.0); BLOOD UREA NITROGEN 3 MG/DL (7-18); BUN/CREATININE RATIO 7.7 (6.6-38.0); CHLORIDE 97 MMOL/L (99-107); CREATININE 0.39 MG/DL (0.40-0.90); GLUCOSE 112 MG/DL (70-104); MAGNESIUM 1.4 MG/DL (1.5-2.4); SODIUM 132 MMOL/L (135-145); TOTAL CARBON DIOXIDE 26.1 MMOL/L (24-32); TOTAL PROTEIN 5.2 G/DL (6.4-8.2); eGFR > 90 ML/MIN
[2017-12-09] MEDS: magnesium Cl slow-release 64mg tablet PO PRN (07:06)
[2017-12-09] MEDS: metoprolol tartrate 12.5mg (1/2 tablet) PO SCH (07:06)
[2017-12-09] MEDS: enoxaparin 40mg/0.4ml syringe SQ SCH (07:07)
[2017-12-09] MEDS: budesonide 0.5mg/2ml UD nebule IH SCH (07:59)
[2017-12-09] MEDS ORDERED: levoTHYROXINE 112mcg tablet PO SCH (08:00)
[2017-12-09] MEDS: K and/or MAG REPLACEMENT MC SCH (08:00)
[2017-12-09] MEDS ORDERED: loratadine 10mg tablet PO SCH (08:00)
[2017-12-09] MEDS ORDERED: docusate sod 100mg capsule PO SCH (08:00)
[2017-12-09] MEDS ORDERED: lurasidone 20mg tablet PO SCH (08:00)
[2017-12-09] MEDS ORDERED: atorvastatin 10mg tablet PO SCH (08:00)
[2017-12-09] MEDS ORDERED: montelukast 10mg tablet PO SCH (08:00)
[2017-12-09] MEDS ORDERED: liothyronine sod 5mcg tablet PO SCH (08:00)
[2017-12-09] MEDS ORDERED: topiramate 100mg tablet PO SCH (08:00)
[2017-12-09 10:00] VITALS: BP 123/78
[2017-12-09] MEDS ORDERED: levoFLOXACIN 750MG TABLET PO SCH (11:00)
== END 2017-12-09 14:30 | DRG 469 ==
LOC: EDBD 06:14 → ER 06:14 → ORTHO 4S 09:08 → MERGE 09:08 → CMPBEDREQ 19:51
PROVIDERS: ADMIT Internal Medicine; ATTEND Internal Medicine
PROC: 0QH704Z Insertion of Internal Fixation Device into Left Upper Femur, Open Approach (ICD-10-PCS; 2017-12-07)
PROC: 0SRS0JA Replacement of Left Hip Joint, Femoral Surface with Synthetic Substitute, Uncemented, Open Approach (ICD-10-PCS; principal; 2017-12-07 15:56)
DX: S72.011A Unspecified intracapsular fracture of right femur, initial encounter for closed fracture (principal); S72.112A Displaced fracture of greater trochanter of left femur, initial encounter for closed fracture; J18.9 Pneumonia, unspecified organism; G93.40 Encephalopathy, unspecified; J44.1 Chronic obstructive pulmonary disease with (acute) exacerbation; J44.0 Chronic obstructive pulmonary disease with (acute) lower respiratory infection; D62 Acute posthemorrhagic anemia; I25.10 Atherosclerotic heart disease of native coronary artery without angina pectoris; F17.210 Nicotine dependence, cigarettes, uncomplicated; W18.39XA Other fall on same level, initial encounter; G47.00 Insomnia, unspecified; I10 Essential (primary) hypertension; R29.6 Repeated falls; Z98.49 Cataract extraction status, unspecified eye; Z90.49 Acquired absence of other specified parts of digestive tract; Z79.899 Other long term (current) drug therapy; Z79.82 Long term (current) use of aspirin; Y93.89 Activity, other specified; Y92.89 Other specified places as the place of occurrence of the external cause; Y99.8 Other external cause status
CPT/HCPCS: 36415; 70450; 71045; 72170; 73502; 80053; 80305; 81003; 83735; 84443; 85025; 85610; 86885; 86900; 86901; 87070; 93306; 94640; 94760; 97110; 97116; 97161; 99285; A6455; A7000; C1776; J0690; J1650; J1956; J2250; J2270; J2704; J3010; J3370; J7030; J7120; J7626

== ENCOUNTER 2018-04-14 22:43 | Emergency (ER) | payer MEDICARE, MEDICAID ==
[~2018-04-14] VITALS: Ht 124.5 cm; Wt 52.3 kg
[~2018-04-14 22:43] MED LIST changes: +BUDE10.2 IH; +DIVA500T9 PO; +DOCU-267 PO; +GABA-532 PO; +HYDR-3973 PO; +LEVO112T5 PO; +LIOT5TAB7 PO; +LORA10TA7 PO; +LOVA20TA2 PO; +MIRT45TA83 PO; +MONT10TA24 PO; +TOP100T PO; -TOPI100T18 PO; +TOPI200T16 PO; +ZOLP10TA5 PO
[2018-04-14 22:59] VITALS: BP 120/64
[2018-04-14] MEDS ORDERED: normal saline 1000ML IV soln IVB ONE (23:35)
--- NOTE | 2018-04-14 23:37 | NUR ---
PT REFUSING LAB DRAWS, XRAY, CT. PT WANTS TO GO HOME AND DOES NOT WANT TO BE TREATED. ADVISED DR BROWN.
== END 2018-04-15 00:25 | disposition home or self-care (01) ==
LOC: ER 22:44
DX: R53.83 Other fatigue (principal); R05 Cough; I25.10 Atherosclerotic heart disease of native coronary artery without angina pectoris; I25.2 Old myocardial infarction; J44.9 Chronic obstructive pulmonary disease, unspecified; E03.9 Hypothyroidism, unspecified; G89.29 Other chronic pain; F17.200 Nicotine dependence, unspecified, uncomplicated; Z90.49 Acquired absence of other specified parts of digestive tract; Z98.890 Other specified postprocedural states; Z79.899 Other long term (current) drug therapy; Z88.8 Allergy status to other drugs, medicaments and biological substances; Z91.018 Allergy to other foods
CPT/HCPCS: 93005; 99283; J7030

== ENCOUNTER 2018-05-15 17:45 | Inpatient (IN) | payer MEDICARE, MEDICAID | END 2018-05-18 16:15 | LOC: ER 17:45 → ORTHO 4S 20:20 | PROC: 0SRR0J9 Replacement of Right Hip Joint, Femoral Surface with Synthetic Substitute, Cemented, Open Approach (ICD-10-PCS; principal; 2018-05-16 10:23) | DX: S72.001A Fracture of unspecified part of neck of right femur, initial encounter for closed fracture (principal); F31.9 Bipolar disorder, unspecified; D69.6 Thrombocytopenia, unspecified ==

== ENCOUNTER 2018-06-30 11:16 | Inpatient (IN) | payer MEDICARE, MEDICAID | END 2018-07-03 14:40 | LOC: ER 11:16 → SUR 3N 07-01 07:41 | DX: G92 Toxic encephalopathy (principal); I21.4 Non-ST elevation (NSTEMI) myocardial infarction; E87.6 Hypokalemia ==

== ENCOUNTER 2018-07-25 21:13 | Inpatient (IN) | payer MEDICARE, MEDICAID ==
[~2018-07-25] VITALS: Ht 165.1 cm; Wt 59.0 kg
[~2018-07-25 21:13] MED LIST changes: +ATOR10TA PO; -BUDE10.2 IH; +CEPH-572 PO; -CEPH500C5 PO; -DIVA500T2 PO; -DIVA500T9 PO; -DOCU-20 PO; -DOCU-267 PO; -DOCU100C41 PO; -FLUR15CA PO; +FURO-149 PO; -FURO-150 PO; -GABA300C PO; -HYDR-3965 PO; -HYDR-3973 PO; +IPRA3AMP9 IH; -IPRA3AMP9 NEB; -LEVO112T5 PO; -LEVO50TA PO; -LEVO88TA2 PO; -LIOT25TA6 PO; +LIOT5TAB14 PO; -LIOT5TAB7 PO; -LORA10TA7 PO; -LOVA20TA2 PO; -LOVA40TA76 PO; -LURA80TA3 PO; -MIRT15TA10 PO; +MIRT15TA8 PO; -MIRT45TA83 PO; -MONT10TA24 PO; +POTA10TA36 PO; +PRED5TAB PO; -TOP100T PO; +TOPI200T PO; -TOPI200T16 PO; -ZOLP10TA5 PO; -ZOLP5TAB8 PO
[2018-07-25] MEDS ORDERED: albuterol 2.5 MG/3 ML nebule CONTNEB PRN ×2 (21:20→21:45)
--- NOTE | 2018-07-25 21:21 | NUR ---
Spoke to Dr. Simeon regarding patient condition and verbal orders provided.
[2018-07-25 21:36] LABS: BASOPHILS % (AUTO) 0.3 % (0-1); EOSINOPHILS % (AUTO) 0 % (0-6); HEMATOCRIT 35.5 % (35.0-45.0); HEMOGLOBIN 11.7 g/dl (12.0-16.0); LYMPHOCYTES % (AUTO) 10.2 % (21-51); MEAN CORPUSCULAR HEMOGLOBIN 31.6 PG (27.0-31.0); MEAN CORPUSCULAR VOLUME 95.9 FL (78-98); MEAN PLATELET VOLUME 8.1 FL (7.4-10.4); MONOCYTES # (AUTO) 0.8 X10'3 (0-0.9); MONOCYTES % (AUTO) 8.1 % (2-12); NEUTROPHILS % (AUTO) 81.4 % (42-75); PLATELET COUNT 287 X10'3 (140-440); RED CELL DISTRIBUTION WIDTH 16.6 % (11.5-14.5); WHITE BLOOD COUNT 9.9 X10'3 (4.5-11.0)
[2018-07-25 21:41] LABS: ABG BASE EXCESS -2.6 mmol/L (-2.0-3.0); ABG HCO3 21.6 mmol/L (22.0-26.0); ABG OXYGEN SATURATION 93.1 % (95-98); ABG PCO2 (T) 36.5 mmHg (32.0-45.0); ABG PH (T) 7.394 (7.350-7.450); ABG PO2 (T) 78.5 mmHg (83-108); ALLEN'S TEST Positive; FCOHb 0.3 % (0.5-1.5); FLOW 15 L/min; FMetHb 0.3 % (0.3-1.12); FO2Hb 92.5 % (94-100); PATIENT TEMPERATURE 37.9; TOTAL HEMOGLOBIN 11.2 G/dl (12.0-16.0)
[2018-07-25 21:49] LABS: PARTIAL THROMBOPLASTIN TIME 33 SECONDS (22-32)
[2018-07-25 22:10] LABS: ALANINE AMINOTRANSFERASE 76 U/L (12-78); ALBUMIN 2.2 G/DL (3.4-5.0); ALBUMIN/GLOBULIN RATIO 0.5 (1.1-1.5); ALKALINE PHOSPHATASE 215 IU/L (46-116); ANION GAP 11 (8-16); ASPARTATE AMINO TRANSFERASE 87 U/L (10-37); BILIRUBIN,TOTAL 0.8 MG/DL (0.1-1.0); BLOOD UREA NITROGEN 12 MG/DL (7-18); BUN/CREATININE RATIO 17.4 (6.6-38.0); CALCIUM 8.3 MG/DL (8.5-10.1); CHLORIDE 97 MMOL/L (99-107); CREATININE 0.69 MG/DL (0.40-0.90); GLUCOSE 117 MG/DL (70-104); POTASSIUM 3.5 MMOL/L (3.5-5.1); SODIUM 130 MMOL/L (135-145); TOTAL CARBON DIOXIDE 21.8 MMOL/L (24-32); TOTAL PROTEIN 6.7 G/DL (6.4-8.2); eGFR 85 ML/MIN
[2018-07-25 22:11] LABS: CLARITY,URINE CLEAR (Clear); COLOR,URINE YELLOW (Yellow); GLUCOSE, URINE NEGATIVE (Neg); KETONES,URINE NEGATIVE (Neg); LEUKOCYTE ESTERASE ,URINE NEGATIVE (Neg); NITRITES, URINE NEGATIVE (Neg); OCCULT BLOOD,URINE NEGATIVE (Neg); PH,URINE 6.5 (4.8-8.0); PROTEIN,URINE TRACE mg/dl (Neg); UA COLLECTION TYPE FOLEY CATH
[2018-07-25] MEDS ORDERED: CefTRIAXone/D5W-Rocephin 1gm 50 ML IV ONE (22:15)
[2018-07-25] MEDS ORDERED: azithromycin/NS 500mg/250ml 250 ML IV ONE (22:15)
--- NOTE | 2018-07-25 22:15 | NUR ---
Spoke to Dr. Craig regarding patient's condition. Patient O2 saturation remains in the low 80s despite being on a continuous nebulizer. Patient was given several norcos and lorazepam tablets from the [facility] facility prior to the onset of her symptoms worsening. Dr. Craig orders 0.4mg narcan IV once to see how she responds and if she continues to have low oxygen saturation we can consider bipap.
[2018-07-25 22:17] LABS: BACTERIA,URINE NONE SEEN /HPF (Neg); MUCUS STRANDS NONE SEEN /LPF (Neg); RBC,URINE 0-2 /HPF (0-2); SQUAMOUS EPITHELIAL CELL,UR FEW /LPF (FEW); TRANSITIONAL EPI CELLS,URINE FEW /HPF; WBC,URINE NONE SEEN /HPF (0-4)
[2018-07-25] MEDS ORDERED: naloxone 0.4 mg/ml inj IV ONE (22:20)
[2018-07-26] MEDS ORDERED: normal saline 1000ml 1,000 ML IVB ONE (00:41)
--- NOTE | 2018-07-26 00:43 | NUR ---
hung a liter of NS for low bp. Pt awoke with gown change. She has a wound vac to her right hip area.
[2018-07-26] MEDS ORDERED: normal saline 1000ML IV soln IVB ONE (01:00)
--- NOTE | 2018-07-26 01:35 | NUR ---
I see MD ordered NS as well, however, course lungs anteriorly. Will hold 3rd liter and let MD know when she is available.
--- NOTE | 2018-07-26 02:05 | NUR ---
updated MD of VS and hlding of 3rd liter of NS r/t her course lungs. MD made aware of 89-90%spox on 15 L NRB.
[2018-07-26] MEDS ORDERED: ASCO500C15 PO (02:36)
[2018-07-26] MEDS ORDERED: ACET-2119 PO (02:36)
[2018-07-26] MEDS ORDERED: HYDR-3964 PO (02:36)
[2018-07-26] MEDS ORDERED: SENN-162 PO (02:36)
[2018-07-26] MEDS ORDERED: OMEP40CA37 PO (02:36)
[2018-07-26] MEDS ORDERED: MAGN400O6 PO (02:41)
[2018-07-26] MEDS ORDERED: HYDR-3972 PO (02:41)
[2018-07-26] MEDS ORDERED: LIDO30CR23 TOP (02:41)
[2018-07-26] MEDS ORDERED: ATR0.5NEB NEB (02:41)
[2018-07-26] MEDS ORDERED: MIRT15TA PO (02:41)
[2018-07-26] MEDS ORDERED: FURO-149 PO (02:41)
[2018-07-26] MEDS ORDERED: MULT-933 PO (02:41)
[2018-07-26] MEDS ORDERED: LIOT5TAB8 PO (02:41)
[2018-07-26] MEDS ORDERED: BISA10SU60 RC (02:47)
[2018-07-26] MEDS ORDERED: NA P133E4 RC (02:47)
[2018-07-26] MEDS ORDERED: LACTC PO (02:47)
[2018-07-26] MEDS ORDERED: GABA-532 PO (02:47)
[2018-07-26] MEDS ORDERED: LORA-269 PO (02:47)
[2018-07-26] MEDS ORDERED: ATOR10TA87 PO (02:47)
[2018-07-26] MEDS ORDERED: DOCU-148 PO (02:47)
[2018-07-26] MEDS ORDERED: LORazepam 2 mg/ml vial IV ONE (04:40)
--- NOTE | 2018-07-26 04:52 | NUR ---
pt anxious. Gave her ativan. Gave her water to drink. While in there the battery for the wound vac started to beep. No cord.
--- NOTE | 2018-07-26 05:09 | NUR ---
SPOKE TO TRINITY ANDREWS VIA TELEPHONE RE POWER CORD FOR PT'S WOUND VAC, RN STATED SHE WOULD CONTACT HER AIR QUALITY TECHNICIAN TO ARRANGE TRANSPORT TO [facility]
--- NOTE | 2018-07-26 05:38 | NUR ---
Chanelle Mcgraw called, updated them that we have a vac here and we will switch it over since pt being admitted. She was happy, but she was also able to find someone to bring the cord over if needed.
--- NOTE | 2018-07-26 05:53 | NUR ---
place oxygen on 6 LNC. See how she does.
[2018-07-26] MEDS ORDERED: normal saline 1000ml 1,000 ML IV SCH (05:56)
--- NOTE | 2018-07-26 05:58 | NUR ---
Nasal cannula at 6L didn't hold her sat. Place a simple mask on at 10 L Will monitor.
[2018-07-26] MEDS ORDERED: ipratropium/albuterol 3ml nebule NEB PRN (06:00)
[2018-07-26] MEDS ORDERED: magnesium 4gm in 100ml NS 100 ML IV PRN (06:00)
[2018-07-26] MEDS ORDERED: magnesium 2GM in 50ml NS 50 ML IV PRN (06:00)
[2018-07-26] MEDS ORDERED: potassium CL 10mEq/100ml bag 100 ML IV PRN (06:00)
[2018-07-26] MEDS ORDERED: potassium Cl 20 mEq SR tablet PO PRN ×2 (06:00)
[2018-07-26] MEDS ORDERED: magnesium hydroxide 30ml (MOM) UD suspension PO PRN (06:00)
[2018-07-26] MEDS ORDERED: magnesium Cl slow-release 64mg tablet PO PRN (06:00)
[2018-07-26] MEDS ORDERED: ondansetron/PF 4mg/2ml inj IV PRN (06:00)
[2018-07-26] MEDS ORDERED: acetaminophen 325mg tablet PO PRN ×3 (06:00→15:20)
[2018-07-26] MEDS ORDERED: HYDROcodone/acetaminophen 5mg/325mg tablet PO PRN (06:00)
[2018-07-26] MEDS ORDERED: HYDROcodone/acetaminophen 10/325mg tab PO PRN (06:00)
[2018-07-26] MEDS ORDERED: potassium Cl 40MEQ/NS 500ml 500 ML IV PRN (06:00)
[2018-07-26] MEDS ORDERED: mag hydrox/Alum hydrox/simeth 30ml oral suspension PO PRN (06:00)
--- NOTE | 2018-07-26 06:17 | NUR ---
failed at mask, NRB placed at 15L
[2018-07-26] MEDS: furosemide 40mg tablet PO SCH (07:54)
--- NOTE | 2018-07-26 07:55 | NUR ---
NON ADMIN LASIX D/T DECREASED SBP 97/68
[2018-07-26] MEDS: CefTRIAXone/D5W-Rocephin 1gm 50 ML IV SCH (08:00)
[2018-07-26] MEDS: K and/or MAG REPLACEMENT MC SCH (08:00)
[2018-07-26] MEDS: topiramate 100mg tablet PO SCH (08:22)
[2018-07-26] MEDS: pantoprazole 40mg Tablet.DR PO SCH (08:22)
[2018-07-26] MEDS: atorvastatin 10mg tablet PO SCH (08:22)
[2018-07-26] MEDS: potassium chloride 10mEq ER tablet PO SCH ×2 (08:22→20:07)
[2018-07-26] MEDS: montelukast 10mg tablet PO SCH (08:22)
[2018-07-26] MEDS: enoxaparin 40mg/0.4ml syringe SQ SCH (08:23)
[2018-07-26] MEDS ORDERED: methylPREDNISolone sod succ 125mg/2ml vial IV ONE (08:55)
--- NOTE | 2018-07-26 09:00 | NUR ---
Patient in room PCU 3027. I have received report from ER nurse and had the opportunity to ask questions and assume patient care. Patient was transferred from [facility] to bed without incident. Telemetry started, vital signs obtained, medications administered as ordered. patient stable at this time. Bed alarm on. Will continue to monitor.
[2018-07-26] MEDS: liothyronine sod 5mcg tablet PO SCH (09:10)
[2018-07-26] MEDS: azithromycin/NS 500mg/250ml 250 ML IV SCH (09:15)
[2018-07-26 09:26] VITALS: BP 93/61
--- NOTE | 2018-07-26 09:51 | NUR ---
Patient insisting she wants to go down for a smoke break. Patient was educated that this is not a possibliity, she insists she gets 4 smoke breaks per day. She was informed that this is a non-smoking facility and that nicotine patches are available, she refused to have one ordered and continues to insist that she will go down for a smoke break. Patient then fell asleep. CRN aware of issue and measures taken to educate patient.
[2018-07-26 11:00] VITALS: BP 91/61
[2018-07-26] MEDS: methylPREDNISolone sod succ 125mg/2ml vial IV SCH ×2 (14:33→20:06)
--- NOTE | 2018-07-26 15:21 | NUR ---
PAGER ID: [phone] MESSAGE: TRINITY Vega, ext [phone], Valadez, Patient has fluids running @70ml/hr but lungs sound wet, received narcan in ER, has Rockwell ordered for pain, please advise. Thank you.
[2018-07-26] MEDS: acetaminophen 325mg tablet PO PRN (18:15)
--- NOTE | 2018-07-26 18:15 | NUR ---
Patient in room PCU 3027. I have received report from Tricia PETERSEN and had the opportunity to ask questions and assume patient care. Patient resting with no immediate need. Will continue to monitor.
--- NOTE | 2018-07-26 18:27 | NUR ---
Problems reprioritized. Patient report given, questions answered & plan of care reviewed with TRINITY Zepeda. Patient is currently resting in bed, bed locked and low, call light in reach. On 3L NC to maintain SPO2>88%. Patient stable at shift change.
[2018-07-26 19:00] VITALS: BP 100/61
--- NOTE | 2018-07-26 19:49 | NUR ---
PAGER ID: [phone] MESSAGE: Maggy MARQUES. Johanna Valadez, pt. is requesting nicotine patch, she smokes 8-10 cigarettes a day. Admitting DX is ARF. Thanks
[2018-07-26] MEDS: lactobacillus rhamnosus 10,000 MMU CELLS/CAPSULE PO SCH (20:06)
[2018-07-26] MEDS: nicotine 14mg patch - 24hr TD SCH (20:09)
[2018-07-26] MEDS ORDERED: temazepam 15mg capsule PO PRN (21:00)
[2018-07-26 23:00] VITALS: BP 99/62
[2018-07-27] VITALS (7 sets, daily range): BP systolic 90–105; BP diastolic 57–68
[2018-07-27] MEDS: methylPREDNISolone sod succ 125mg/2ml vial IV SCH ×4 (01:49→19:51)
[2018-07-27] MEDS: acetaminophen 325mg tablet PO PRN (01:52)
[2018-07-27 05:15] LABS: BASOPHILS % (AUTO) 0.1 % (0-1); EOSINOPHILS % (AUTO) 0.1 % (0-6); HEMATOCRIT 28.5 % (35.0-45.0); HEMOGLOBIN 9.3 g/dl (12.0-16.0); LYMPHOCYTES # (AUTO) 0.7 X10'3 (1.1-4.8); LYMPHOCYTES % (AUTO) 12.6 % (21-51); MEAN CORPUSCULAR HEMOGLOBIN 31.5 PG (27.0-31.0); MEAN CORPUSCULAR HGB CONC 32.8 g/dL (33.0-36.5); MEAN CORPUSCULAR VOLUME 96.2 FL (78-98); MEAN PLATELET VOLUME 8.1 FL (7.4-10.4); MONOCYTES # (AUTO) 0.6 X10'3 (0-0.9); MONOCYTES % (AUTO) 10.7 % (2-12); NEUTROPHILS % (AUTO) 76.5 % (42-75); PLATELET COUNT 275 X10'3 (140-440); RED BLOOD COUNT 2.96 X10'6 (4.20-5.60); RED CELL DISTRIBUTION WIDTH 16.9 % (11.5-14.5); WHITE BLOOD COUNT 5.3 X10'3 (4.5-11.0)
[2018-07-27 05:34] LABS: ALBUMIN 1.7 G/DL (3.4-5.0); ANION GAP 9 (8-16); BLOOD UREA NITROGEN 15 MG/DL (7-18); BUN/CREATININE RATIO 24.6 (6.6-38.0); CALCIUM 8.3 MG/DL (8.5-10.1); CHLORIDE 105 MMOL/L (99-107); CREATININE 0.61 MG/DL (0.40-0.90); GLUCOSE 121 MG/DL (70-104); MAGNESIUM 1.7 MG/DL (1.5-2.4); POTASSIUM 3.7 MMOL/L (3.5-5.1); SODIUM 135 MMOL/L (135-145); TOTAL CARBON DIOXIDE 21.4 MMOL/L (24-32); eGFR > 90 ML/MIN
--- NOTE | 2018-07-27 06:18 | NUR ---
Problems reprioritized. Patient report given, questions answered & plan of care reviewed with Carine PETERSEN and Silvia RN.
--- NOTE | 2018-07-27 06:34 | NUR ---
Patient in room PCU 3027. I have received report from TRINITY Zepeda and had the opportunity to ask questions and assume patient care. Patient is currently resting in bed, bed locked and low, call light in reach. Patient is complaining of pain and insists tylenol is not doing anything, Repositioned patient to get her off of her tailbone which she said helped a little. Will speak to MD about pain medications later today. No acute distress, will continue to monitor.
[2018-07-27] MEDS: K and/or MAG REPLACEMENT MC SCH (08:00)
[2018-07-27] MEDS: enoxaparin 40mg/0.4ml syringe SQ SCH (09:17)
[2018-07-27] MEDS: montelukast 10mg tablet PO SCH (09:18)
[2018-07-27] MEDS: furosemide 40mg tablet PO SCH (09:18)
[2018-07-27] MEDS: liothyronine sod 5mcg tablet PO SCH (09:19)
[2018-07-27] MEDS: pantoprazole 40mg Tablet.DR PO SCH (09:19)
[2018-07-27] MEDS: lactobacillus rhamnosus 10,000 MMU CELLS/CAPSULE PO SCH ×2 (09:19→19:51)
[2018-07-27] MEDS: topiramate 100mg tablet PO SCH (09:19)
[2018-07-27] MEDS: nicotine 14mg patch - 24hr TD SCH (09:20)
[2018-07-27] MEDS: atorvastatin 10mg tablet PO SCH (09:20)
[2018-07-27] MEDS: CefTRIAXone/D5W-Rocephin 1gm 50 ML IV SCH (09:21)
[2018-07-27] MEDS: potassium chloride 10mEq ER tablet PO SCH ×2 (11:00→19:51)
[2018-07-27] MEDS: traMADol 50MG tablet PO PRN ×3 (11:01→23:07)
[2018-07-27] MEDS: azithromycin/NS 500mg/250ml 250 ML IV SCH (11:02)
--- NOTE | 2018-07-27 15:06 | NUR ---
PAGER ID: [phone] MESSAGE: TRINITY Vega, ext [phone], Rory, nasal swab MRSA culture +. Pt continues to complain of persistent pain despite tramadol. Thank you
--- NOTE | 2018-07-27 15:06 | NUR ---
Received call from Moshe in lab with positive result for MRSA nasal swab, page sent to Dr. Williamson
--- NOTE | 2018-07-27 18:05 | NUR ---
Problems reprioritized. Patient report given, questions answered & plan of care reviewed with TRINITY Zepeda. Patient currently resting in bed, bed locked and low, call light in reach. No acute distress, stable at shift change.
--- NOTE | 2018-07-27 18:42 | NUR ---
Patient in room PCU 3027. I have received report from Carine PETERSEN and Silvia RN and had the opportunity to ask questions and assume patient care. Check on patient, she is resting, will continue to monitor.
[2018-07-28] MEDS: methylPREDNISolone sod succ 125mg/2ml vial IV SCH ×4 (02:13→20:00)
[2018-07-28 03:00] VITALS: BP 106/65
[2018-07-28 05:00] LABS: BASOPHILS % (AUTO) 0.2 % (0-1); EOSINOPHILS % (AUTO) 0 % (0-6); HEMATOCRIT 29.5 % (35.0-45.0); HEMOGLOBIN 9.9 g/dl (12.0-16.0); LYMPHOCYTES # (AUTO) 0.7 X10'3 (1.1-4.8); LYMPHOCYTES % (AUTO) 13.4 % (21-51); MEAN CORPUSCULAR HEMOGLOBIN 31.9 PG (27.0-31.0); MEAN CORPUSCULAR HGB CONC 33.5 g/dL (33.0-36.5); MEAN CORPUSCULAR VOLUME 95.1 FL (78-98); MEAN PLATELET VOLUME 7.6 FL (7.4-10.4); MONOCYTES # (AUTO) 0.6 X10'3 (0-0.9); MONOCYTES % (AUTO) 10.8 % (2-12); NEUTROPHILS # (AUTO) 3.9 X10'3 (1.8-7.7); NEUTROPHILS % (AUTO) 75.6 % (42-75); PLATELET COUNT 298 X10'3 (140-440); RED CELL DISTRIBUTION WIDTH 16.9 % (11.5-14.5); WHITE BLOOD COUNT 5.2 X10'3 (4.5-11.0)
[2018-07-28 05:11] LABS: ALBUMIN 1.7 G/DL (3.4-5.0); ANION GAP 9 (8-16); BLOOD UREA NITROGEN 17 MG/DL (7-18); BUN/CREATININE RATIO 32.1 (6.6-38.0); CALCIUM 8.2 MG/DL (8.5-10.1); CHLORIDE 105 MMOL/L (99-107); CREATININE 0.53 MG/DL (0.40-0.90); GLUCOSE 110 MG/DL (70-104); MAGNESIUM 1.7 MG/DL (1.5-2.4); PHOSPHORUS 3.9 MG/DL (2.3-4.5); POTASSIUM 3.5 MMOL/L (3.5-5.1); SODIUM 136 MMOL/L (135-145); TOTAL CARBON DIOXIDE 22.3 MMOL/L (24-32); eGFR > 90 ML/MIN
[2018-07-28] MEDS: traMADol 50MG tablet PO PRN ×3 (05:17→17:16)
--- NOTE | 2018-07-28 06:44 | NUR ---
Problems reprioritized. Patient report given, questions answered & plan of care reviewed with Ana PETERSEN and Blanco PETERSEN.
[2018-07-28] MEDS: lactobacillus rhamnosus 10,000 MMU CELLS/CAPSULE PO SCH ×2 (07:55→20:00)
[2018-07-28] MEDS: furosemide 40mg tablet PO SCH (07:57)
[2018-07-28] MEDS: pantoprazole 40mg Tablet.DR PO SCH (07:57)
[2018-07-28] MEDS: potassium chloride 10mEq ER tablet PO SCH ×2 (07:57→20:00)
[2018-07-28] MEDS: liothyronine sod 5mcg tablet PO SCH (07:57)
[2018-07-28] MEDS: montelukast 10mg tablet PO SCH (07:58)
[2018-07-28] MEDS: topiramate 100mg tablet PO SCH (07:58)
[2018-07-28] MEDS: azithromycin 250mg tablet PO SCH (07:59)
[2018-07-28] MEDS: enoxaparin 40mg/0.4ml syringe SQ SCH (08:00)
[2018-07-28] MEDS: K and/or MAG REPLACEMENT MC SCH (08:00)
[2018-07-28] MEDS: nicotine 14mg patch - 24hr TD SCH (08:01)
[2018-07-28] MEDS: CefTRIAXone/D5W-Rocephin 1gm 50 ML IV SCH (08:15)
--- NOTE | 2018-07-28 14:46 | NUR ---
Wound consult re: "pt has nonhealing surgical wound to right hip". Pt seen at bedside given written and verbal protein education. Pt very receptive to information and appeared understanding of the importance of protein intake for wound healing. Pt currently on a regular diet with documented average 75% PO intake. Pt denied ONS at this time. Per physical assessment pt resistive to care. RD contact information provided. 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 Pt reports difficulty chewing d/t being edentulous however denies need for texture modification at this time but requests no lettuce, d/w dietary. Will continue to follow. Addendum: 07/28/18 at [address] Amended: Links added.
[2018-07-28] MEDS: atorvastatin 10mg tablet PO SCH (17:00)
[2018-07-28 18:00] VITALS: BP 113/73
--- NOTE | 2018-07-28 18:48 | NUR ---
Patient in room PCU 3027. I have received report from Ana PETERSEN and had the opportunity to ask questions and assume patient care.
--- NOTE | 2018-07-28 20:00 | NUR ---
pt refued to be turned and wanted to left alone will ask again
[2018-07-28 23:00] VITALS: BP 120/75
[2018-07-29] MEDS: methylPREDNISolone sod succ 125mg/2ml vial IV SCH ×3 (02:00→14:03)
[2018-07-29 03:00] VITALS: BP 127/69
[2018-07-29 06:00] VITALS: BP 114/64
--- NOTE | 2018-07-29 06:03 | NUR ---
Problems reprioritized. Patient report given, questions answered & plan of care reviewed with Ana PETERSEN.
[2018-07-29 06:10] LABS: BASOPHILS % (AUTO) 0.3 % (0-1); EOSINOPHILS % (AUTO) 0 % (0-6); HEMATOCRIT 33.4 % (35.0-45.0); HEMOGLOBIN 10.9 g/dl (12.0-16.0); LYMPHOCYTES # (AUTO) 0.9 X10'3 (1.1-4.8); LYMPHOCYTES % (AUTO) 17.1 % (21-51); MEAN CORPUSCULAR HEMOGLOBIN 31.3 PG (27.0-31.0); MEAN CORPUSCULAR HGB CONC 32.8 g/dL (33.0-36.5); MEAN CORPUSCULAR VOLUME 95.5 FL (78-98); MONOCYTES # (AUTO) 0.6 X10'3 (0-0.9); MONOCYTES % (AUTO) 11.7 % (2-12); NEUTROPHILS # (AUTO) 3.7 X10'3 (1.8-7.7); NEUTROPHILS % (AUTO) 70.9 % (42-75); PLATELET COUNT 336 X10'3 (140-440); RED CELL DISTRIBUTION WIDTH 16.8 % (11.5-14.5); WHITE BLOOD COUNT 5.2 X10'3 (4.5-11.0)
--- NOTE | 2018-07-29 06:20 | NUR ---
Patient in room PCU 3027. I have received report from Madeline PETERSEN and had the opportunity to ask questions and assume patient care.
[2018-07-29 06:29] LABS: ALBUMIN 2.1 G/DL (3.4-5.0); ANION GAP 8 (8-16); BLOOD UREA NITROGEN 22 MG/DL (7-18); CALCIUM 8.4 MG/DL (8.5-10.1); CHLORIDE 105 MMOL/L (99-107); CREATININE 0.55 MG/DL (0.40-0.90); GLUCOSE 103 MG/DL (70-104); MAGNESIUM 1.8 MG/DL (1.5-2.4); PHOSPHORUS 4.1 MG/DL (2.3-4.5); POTASSIUM 3.5 MMOL/L (3.5-5.1); SODIUM 137 MMOL/L (135-145); TOTAL CARBON DIOXIDE 24.2 MMOL/L (24-32); eGFR > 90 ML/MIN
[2018-07-29] MEDS: K and/or MAG REPLACEMENT MC SCH (07:06)
[2018-07-29] MEDS ORDERED: atorvastatin 10mg tablet PO SCH (07:22)
[2018-07-29] MEDS: pantoprazole 40mg Tablet.DR PO SCH (08:09)
[2018-07-29] MEDS: montelukast 10mg tablet PO SCH (08:09)
[2018-07-29] MEDS: liothyronine sod 5mcg tablet PO SCH (08:09)
[2018-07-29] MEDS: enoxaparin 40mg/0.4ml syringe SQ SCH (08:09)
[2018-07-29] MEDS: potassium chloride 10mEq ER tablet PO SCH ×2 (08:09→21:18)
[2018-07-29] MEDS: CefTRIAXone/D5W-Rocephin 1gm 50 ML IV SCH (08:10)
[2018-07-29] MEDS: azithromycin 250mg tablet PO SCH (08:10)
[2018-07-29] MEDS: topiramate 100mg tablet PO SCH (08:10)
[2018-07-29] MEDS: furosemide 40mg tablet PO SCH (08:10)
[2018-07-29] MEDS: lactobacillus rhamnosus 10,000 MMU CELLS/CAPSULE PO SCH ×2 (08:10→21:18)
--- NOTE | 2018-07-29 08:10 | NUR ---
Patient refused Lovenox (enoxaparin) 40mg this morning. Pt was informed of the risks of not accepting injection. Pt is not being cooperative with treatment.
[2018-07-29] MEDS: nicotine 14mg patch - 24hr TD SCH (08:14)
[2018-07-29 11:00] VITALS: BP 130/73
--- NOTE | 2018-07-29 14:44 | NUR ---
Pt has been refusing to get turned. Will continue asking and monitoring.
[2018-07-29 15:00] VITALS: BP 119/79
--- NOTE | 2018-07-29 15:49 | NUR ---
Current IV infiltrated. One attempt made by me, but no success. Charge nurse attempted, however, pt is now refusing. Pt upset and continues to refuse. Pagemary BEAVERS. Will continue to monitor.
--- NOTE | 2018-07-29 15:49 | NUR ---
PAGER ID: [phone] MESSAGE: [phone] Johanna Valadez, Pt needing new IV, but pt refusing. Pt very angry and upset. Can IV meds be switched to PO. Please callAna [phone]
[2018-07-29] MEDS ORDERED: methylPREDNISolone sod succ/PF 40mg inj. IV SCH (16:00)
--- NOTE | 2018-07-29 16:18 | NUR ---
PAGER ID: [phone] MESSAGE: [phone] Johanna Valadez, Pt needing new IV, but pt refusing. Can IV meds be switched to PO. Please callAna [phone]
--- NOTE | 2018-07-29 16:34 | NUR ---
PAGER ID: [phone] MESSAGE: [phone] Darien Moore Vishal blood pressure is 98/73, and 40 mg of Lasix IV is scheduled now, would you like me to adjust BP parameters or hold it? please call Ana #[phone] Addendum: 07/29/18 at 1758 by Ana Trejo RN WRONG PATIENT
[2018-07-29] MEDS: predniSONE 20 mg tablet PO SCH (17:13)
[2018-07-29 18:00] VITALS: BP 131/80
--- NOTE | 2018-07-29 18:27 | NUR ---
Problems reprioritized. Patient report given, questions answered & plan of care reviewed with Madeline PETERSEN.
--- NOTE | 2018-07-29 18:51 | NUR ---
Patient in room PCU 3027. I have received report from Ana PETERSEN and had the opportunity to ask questions and assume patient care.
[2018-07-29] MEDS: traMADol 50MG tablet PO PRN (21:17)
[2018-07-29 23:00] VITALS: BP 135/83
[2018-07-30 03:00] VITALS: BP 134/86
[2018-07-30] MEDS: traMADol 50MG tablet PO PRN ×2 (03:27→11:45)
--- NOTE | 2018-07-30 06:00 | NUR ---
Patient in room PCU 3022M, I have received report from TRINITY Correa and had the opportunity to ask questions and assume patient care. Rn states that "patient continues to refuse medications except pain meds. Pt is resting, awake, watching TV. Denies SOB, pain, and chest pain. Will continue to monitor.
--- NOTE | 2018-07-30 06:08 | NUR ---
Problems reprioritized. Patient report given, questions answered & plan of care reviewed with Fay PETERSEN.
[2018-07-30 06:45] LABS: ALBUMIN 2.2 G/DL (3.4-5.0); ANION GAP 10 (8-16); BLOOD UREA NITROGEN 20 MG/DL (7-18); BUN/CREATININE RATIO 29.9 (6.6-38.0); CALCIUM 8.2 MG/DL (8.5-10.1); CHLORIDE 103 MMOL/L (99-107); CREATININE 0.67 MG/DL (0.40-0.90); GLUCOSE 95 MG/DL (70-104); MAGNESIUM 1.7 MG/DL (1.5-2.4); PHOSPHORUS 3.2 MG/DL (2.3-4.5); SODIUM 137 MMOL/L (135-145); TOTAL CARBON DIOXIDE 24.2 MMOL/L (24-32); eGFR 88 ML/MIN
[2018-07-30 06:47] LABS: POTASSIUM 2.8 MMOL/L (3.5-5.1)
[2018-07-30 06:54] LABS: BASOPHILS % (AUTO) 0.2 % (0-1); EOSINOPHILS % (AUTO) 0.1 % (0-6); HEMATOCRIT 32.6 % (35.0-45.0); HEMOGLOBIN 10.8 g/dl (12.0-16.0); LYMPHOCYTES # (AUTO) 1.3 X10'3 (1.1-4.8); LYMPHOCYTES % (AUTO) 19.5 % (21-51); MEAN CORPUSCULAR HEMOGLOBIN 31.2 PG (27.0-31.0); MEAN CORPUSCULAR HGB CONC 33.1 g/dL (33.0-36.5); MEAN CORPUSCULAR VOLUME 94.4 FL (78-98); MEAN PLATELET VOLUME 8.2 FL (7.4-10.4); MONOCYTES # (AUTO) 0.7 X10'3 (0-0.9); NEUTROPHILS # (AUTO) 4.7 X10'3 (1.8-7.7); NEUTROPHILS % (AUTO) 70.2 % (42-75); PLATELET COUNT 448 X10'3 (140-440); RED BLOOD COUNT 3.45 X10'6 (4.20-5.60); RED CELL DISTRIBUTION WIDTH 16.4 % (11.5-14.5); WHITE BLOOD COUNT 6.7 X10'3 (4.5-11.0)
[2018-07-30 07:00] VITALS: BP 115/78
--- NOTE | 2018-07-30 07:08 | NUR ---
PAGER ID: [phone] MESSAGE: [phone] Johanna Valadez Critical low potassium of 2.8, please call Ana #[phone]
[2018-07-30] MEDS ORDERED: potassium Cl 20 mEq SR tablet PO PRN (07:15)
[2018-07-30] MEDS ORDERED: potassium CL 10mEq/100ml bag 100 ML IV PRN (07:15)
[2018-07-30] MEDS: azithromycin 250mg tablet PO SCH (07:57)
[2018-07-30] MEDS: potassium Cl 20 mEq SR tablet PO PRN ×2 (07:57→11:40)
[2018-07-30] MEDS: furosemide 40mg tablet PO SCH (07:58)
[2018-07-30] MEDS: liothyronine sod 5mcg tablet PO SCH (07:58)
[2018-07-30] MEDS: montelukast 10mg tablet PO SCH (07:58)
[2018-07-30] MEDS: pantoprazole 40mg Tablet.DR PO SCH (07:58)
[2018-07-30] MEDS: topiramate 100mg tablet PO SCH (07:58)
[2018-07-30] MEDS: lactobacillus rhamnosus 10,000 MMU CELLS/CAPSULE PO SCH (07:59)
[2018-07-30] MEDS: predniSONE 20 mg tablet PO SCH (07:59)
[2018-07-30] MEDS: potassium chloride 10mEq ER tablet PO SCH (07:59)
[2018-07-30] MEDS: K and/or MAG REPLACEMENT MC SCH (08:00)
[2018-07-30] MEDS ORDERED: levoFLOXACIN 500mg tablet PO SCH (08:00)
[2018-07-30] MEDS ORDERED: levoFLOXACIN 500mg tablet PO ONE (08:00)
[2018-07-30] MEDS: enoxaparin 40mg/0.4ml syringe SQ SCH (08:03)
[2018-07-30] MEDS: nicotine 14mg patch - 24hr TD SCH (08:05)
[2018-07-30 11:00] VITALS: BP 120/75
--- NOTE | 2018-07-30 15:05 | NUR ---
Discontinued IV, discontinued Farrar, pt alert and oriented X 4. Vital sings within normal limits. Transport picked up pt and pt transferred to [facility] with her personal O2 concentrator and wound vac. Report called into Agata PETERSEN.
== END 2018-07-30 15:22 | DRG 193 ==
LOC: ER 21:14 → PCU 3S 07-26 08:05 → CMPBEDREQ 07-26 19:44
PROVIDERS: ADMIT Family Medicine; ATTEND Family Medicine
DX: J14 Pneumonia due to Hemophilus influenzae (principal); J96.01 Acute respiratory failure with hypoxia; G93.41 Metabolic encephalopathy; E87.1 Hypo-osmolality and hyponatremia; J44.1 Chronic obstructive pulmonary disease with (acute) exacerbation; J44.0 Chronic obstructive pulmonary disease with (acute) lower respiratory infection; Z60.2 Problems related to living alone; D64.9 Anemia, unspecified; E03.9 Hypothyroidism, unspecified; E78.5 Hyperlipidemia, unspecified; G40.909 Epilepsy, unspecified, not intractable, without status epilepticus; I25.10 Atherosclerotic heart disease of native coronary artery without angina pectoris; G89.29 Other chronic pain; M54.9 Dorsalgia, unspecified; I95.9 Hypotension, unspecified; F31.9 Bipolar disorder, unspecified; Z90.49 Acquired absence of other specified parts of digestive tract; Z88.8 Allergy status to other drugs, medicaments and biological substances; Z91.018 Allergy to other foods; Z79.890 Hormone replacement therapy; Z79.899 Other long term (current) drug therapy; I25.2 Old myocardial infarction; Z82.49 Family history of ischemic heart disease and other diseases of the circulatory system; Z82.5 Family history of asthma and other chronic lower respiratory diseases
CPT/HCPCS: 36415; 36600; 71045; 80048; 80053; 81001; 82803; 83605; 83735; 83880; 84100; 84145; 84484; 85018; 85025; 85610; 85730; 87040; 87070; 87077; 87185; 93005; 94640; 94760; 96365; 96368; 96375; 96376; 97110; 97116; 97161; 97530; 99285; G0378; J0456; J0696; J1650; J2060; J2310; J2930; J7030; J7512

== ENCOUNTER 2018-10-09 06:21 | Emergency (ER) | payer MEDICARE, MEDICAID ==
[~2018-10-09] VITALS: Ht 152.4 cm; Wt 72.7 kg
[~2018-10-09 06:21] MED LIST changes: +ACET-2119 PO; +ASCO500C15 PO; -ATOR10TA PO; +ATOR10TA87 PO; +ATR0.5NEB NEB; +BISA10SU60 RC; -CEPH-572 PO; +DOCU-148 PO; +HYDR-3964 PO; +HYDR-3972 PO; -IPRA3AMP9 IH; +LACTC PO; +LIDO30CR23 TOP; +LIOT5TAB10 PO; -LIOT5TAB14 PO; +LORA-269 PO; +MAGN400O6 PO; +MIRT15TA PO; -MIRT15TA8 PO; +MULT-933 PO; +NA P133E4 RC; +OMEP40CA13 PO; +SENN-162 PO
--- NOTE | 2018-10-09 07:43 | NUR ---
caregiver: papito: [phone]
[2018-10-09] MEDS ORDERED: ketorolac tromethamine 15mg/ml inj. IV ONE (08:00)
[2018-10-09] MEDS ORDERED: normal saline 1000ML IV soln IVB ONE (08:00)
[2018-10-09] MEDS ORDERED: pantoprazole 40 MG vial IV ONE (08:00)
[2018-10-09] MEDS ORDERED: ondansetron/PF 4mg/2ml inj IV ONE (08:00)
[2018-10-09 08:41] LABS: CLARITY,URINE CLOUDY (Clear); COLOR,URINE YELLOW (Yellow); GLUCOSE, URINE NEGATIVE (Neg); KETONES,URINE TRACE mg/dl (Neg); LEUKOCYTE ESTERASE ,URINE MODERATE (Neg); OCCULT BLOOD,URINE MODERATE (Neg); PROTEIN,URINE 100 mg/dl (Neg); UROBILINOGEN,URINE 0.2 E.U/dL (0.2-1.0)
[2018-10-09 08:43] LABS: BASOPHILS % (AUTO) 0.2 % (0-1); EOSINOPHILS % (AUTO) 0.2 % (0-6); HEMATOCRIT 34.6 % (35.0-45.0); HEMOGLOBIN 11.2 g/dl (12.0-16.0); LYMPHOCYTES # (AUTO) 0.4 X10'3 (1.1-4.8); LYMPHOCYTES % (AUTO) 3.2 % (21-51); MEAN CORPUSCULAR HEMOGLOBIN 29.6 PG (27.0-31.0); MEAN CORPUSCULAR HGB CONC 32.5 g/dL (33.0-36.5); MEAN CORPUSCULAR VOLUME 91.2 FL (78-98); MEAN PLATELET VOLUME 7.8 FL (7.4-10.4); MONOCYTES # (AUTO) 0.5 X10'3 (0-0.9); MONOCYTES % (AUTO) 3.5 % (2-12); NEUTROPHILS # (AUTO) 12.9 X10'3 (1.8-7.7); NEUTROPHILS % (AUTO) 92.9 % (42-75); PLATELET COUNT 132 X10'3 (140-440); RED BLOOD COUNT 3.79 X10'6 (4.20-5.60); RED CELL DISTRIBUTION WIDTH 16.8 % (11.5-14.5); WHITE BLOOD COUNT 13.9 X10'3 (4.5-11.0)
[2018-10-09 08:51] LABS: ALANINE AMINOTRANSFERASE 10 U/L (12-78); ALBUMIN 3.4 G/DL (3.4-5.0); ALBUMIN/GLOBULIN RATIO 1.1 (1.1-1.5); ALKALINE PHOSPHATASE 62 IU/L (46-116); ANION GAP 12 (8-16); ASPARTATE AMINO TRANSFERASE 3 U/L (10-37); BILIRUBIN,TOTAL 0.5 MG/DL (0.1-1.0); BLOOD UREA NITROGEN 11 MG/DL (7-18); BUN/CREATININE RATIO 20.8 (6.6-38.0); CALCIUM 8.5 MG/DL (8.5-10.1); CHLORIDE 102 MMOL/L (99-107); CREATININE 0.53 MG/DL (0.40-0.90); GLUCOSE 100 MG/DL (70-104); LIPASE < 50 U/L (73-393); POTASSIUM 3.9 MMOL/L (3.5-5.1); SODIUM 134 MMOL/L (135-145); TOTAL CARBON DIOXIDE 20.3 MMOL/L (24-32); TOTAL PROTEIN 6.6 G/DL (6.4-8.2); eGFR > 90 ML/MIN
[2018-10-09 08:55] LABS: NITRITES, URINE NEGATIVE (Neg); UA COLLECTION TYPE CLN CATCH MIDSTREAM
[2018-10-09 09:02] LABS: SQUAMOUS EPITHELIAL CELL,UR FEW /LPF (FEW)
[2018-10-09 09:03] LABS: WBC,URINE TNTC /HPF (0-4)
[2018-10-09 09:04] LABS: BACTERIA,URINE 3+ /HPF (Neg)
[2018-10-09] MEDS ORDERED: CefTRIAXone/D5W-Rocephin 1gm 50 ML IV ONE (09:15)
[2018-10-09] MEDS ORDERED: CEPH500C5 PO (09:18)
[2018-10-09] MEDS ORDERED: albuterol 1.25 MG/3 ML (1/2 strength) nebule NEB ONE (09:30)
--- NOTE | 2018-10-09 09:41 | NUR ---
PT REFUSES TO TURN AND ADJUST THE PULSE OX IN ORDER TO GET A READING.
--- NOTE | 2018-10-09 09:51 | NUR ---
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 PT STATES SHE WANTS TO GO HOME AND DOESNT WANT HER BREATHING TREATMENT.
[2018-10-09 09:58] VITALS: BP 137/56
--- NOTE | 2018-10-12 12:00 | NUR ---
CALLED PT. AT HOME. PT. FEELING BETTER. PT. HAS A LOT OF MEDICATIONS SHE IS RESISTANT TO. PT. TOLD TO KEEP TAKING THE KEFLEX SINCE IT WAS MAKING HER FEEL BETTER. I TOLD HER TO RETURN TO ER IF SHE STARTS FEELING WORSE. DR. DUFF NOTIFIED ABOUT THIS CONVERSATION
[2018-11-15] MEDS ORDERED: LEVO112T5 PO (17:06)
[2018-11-15] MEDS ORDERED: ZOLP10TA5 PO (17:06)
[2018-11-15] MEDS ORDERED: HYDR-3973 PO (17:06)
[2018-11-15] MEDS ORDERED: MONT10TA24 PO (17:06)
[2018-11-15] MEDS ORDERED: LURA80TA3 PO (17:06)
[2018-11-15] MEDS ORDERED: BUDE10.2 PO (17:06)
[2018-11-15] MEDS ORDERED: DIVA500T9 PO (17:06)
[2018-11-25] MEDS ORDERED: NICO-687 TD (11:25)
== END 2018-10-09 10:00 | disposition home or self-care (01) ==
LOC: ER 06:22
DX: N39.0 Urinary tract infection, site not specified (principal); M54.6 Pain in thoracic spine; M54.5 Low back pain; I25.10 Atherosclerotic heart disease of native coronary artery without angina pectoris; I25.2 Old myocardial infarction; J44.9 Chronic obstructive pulmonary disease, unspecified; E03.9 Hypothyroidism, unspecified; G89.29 Other chronic pain; F31.9 Bipolar disorder, unspecified; F17.200 Nicotine dependence, unspecified, uncomplicated; Z90.49 Acquired absence of other specified parts of digestive tract; Z98.890 Other specified postprocedural states; Z91.018 Allergy to other foods; Z88.8 Allergy status to other drugs, medicaments and biological substances; Z79.2 Long term (current) use of antibiotics; Z79.899 Other long term (current) drug therapy
CPT/HCPCS: 36415; 71045; 80053; 81001; 83690; 85025; 87088; 96365; 96375; 99284; C9113; J0696; J1885; J2405; J7040; 87077; 87186

== ENCOUNTER 2018-10-13 00:54 | Emergency (ER) | payer MEDICARE, MEDICAID ==
[~2018-10-13] VITALS: Ht 165.1 cm; Wt 66.0 kg
[~2018-10-13 00:54] MED LIST changes: +CEPH500C5 PO
--- NOTE | 2018-10-13 04:58 | NUR ---
CALLED CONTACT ON PT PROFILE, CONTACT SAID TO CALL THE PT CAREGIVER AND GAVE PHONE NUMBER - [phone]. CALLED NUMBER AND NO ONE ANSWERED, LEFT MESSAGE. WILL CALL AGAIN.
--- NOTE | 2018-10-13 05:13 | NUR ---
CAREGIVER CALLED BACK AND STATED THEY WILL BE COMING - NO ETA
[2018-10-13 05:19] VITALS: BP 126/50
[2018-11-15] MEDS ORDERED: DIVA500T9 PO (17:06)
[2018-11-15] MEDS ORDERED: HYDR-3973 PO (17:06)
[2018-11-15] MEDS ORDERED: LEVO112T5 PO (17:06)
[2018-11-15] MEDS ORDERED: BUDE10.2 PO (17:06)
[2018-11-15] MEDS ORDERED: ZOLP10TA5 PO (17:06)
[2018-11-15] MEDS ORDERED: MONT10TA24 PO (17:06)
[2018-11-15] MEDS ORDERED: LURA80TA3 PO (17:06)
[2018-11-25] MEDS ORDERED: NICO-687 TD (11:25)
== END 2018-10-13 06:13 | disposition home or self-care (01) ==
LOC: ER 00:55
DX: M25.551 Pain in right hip (principal); I25.10 Atherosclerotic heart disease of native coronary artery without angina pectoris; I25.2 Old myocardial infarction; J44.9 Chronic obstructive pulmonary disease, unspecified; E03.9 Hypothyroidism, unspecified; G89.29 Other chronic pain; Z90.49 Acquired absence of other specified parts of digestive tract; Z98.890 Other specified postprocedural states; Z88.8 Allergy status to other drugs, medicaments and biological substances; Z91.018 Allergy to other foods; Z79.899 Other long term (current) drug therapy; W19.XXXA Unspecified fall, initial encounter; Y93.01 Activity, walking, marching and hiking; Y92.89 Other specified places as the place of occurrence of the external cause; Y99.9 Unspecified external cause status
CPT/HCPCS: 71045; 73521; 99284

== ENCOUNTER 2018-11-07 13:37 | Emergency (ER) | payer MEDICARE, MEDICAID ==
[~2018-11-07] VITALS: Ht 152.4 cm; Wt 54.5 kg
[2018-11-07 13:47] VITALS: BP 91/64
[2018-11-07] MEDS ORDERED: triamcinolone acetonide 40mg/ml inj IM ONE (15:05)
[2018-11-07] MEDS ORDERED: TRIA15CR61 TOP (15:14)
[2018-11-07] MEDS ORDERED: METH4TAB81 PO (15:14)
[2018-11-15] MEDS ORDERED: DIVA500T9 PO (17:06)
[2018-11-15] MEDS ORDERED: LURA80TA3 PO (17:06)
[2018-11-15] MEDS ORDERED: HYDR-3973 PO (17:06)
[2018-11-15] MEDS ORDERED: LEVO112T5 PO (17:06)
[2018-11-15] MEDS ORDERED: MONT10TA24 PO (17:06)
[2018-11-15] MEDS ORDERED: ZOLP10TA5 PO (17:06)
[2018-11-15] MEDS ORDERED: BUDE10.2 PO (17:06)
[2018-11-25] MEDS ORDERED: NICO-687 TD (11:25)
== END 2018-11-07 15:25 | disposition home or self-care (01) ==
LOC: ER 13:37
DX: L23.9 Allergic contact dermatitis, unspecified cause (principal); I25.10 Atherosclerotic heart disease of native coronary artery without angina pectoris; I25.2 Old myocardial infarction; J44.9 Chronic obstructive pulmonary disease, unspecified; G89.29 Other chronic pain; F31.9 Bipolar disorder, unspecified; Z90.49 Acquired absence of other specified parts of digestive tract; Z98.890 Other specified postprocedural states; Z88.8 Allergy status to other drugs, medicaments and biological substances; Z91.018 Allergy to other foods; Z79.899 Other long term (current) drug therapy; Z79.2 Long term (current) use of antibiotics
CPT/HCPCS: 96372; 99284; J3301